=== PATIENT | female | born 1990 | race Caucasian/White ===

== ENCOUNTER → 2020-03-30 13:00 | Outpatient (BNVA) | payer BC, SELFPAY | PROVIDERS: Visit Provider Nurse Practitioner Family | DX: J40 Bronchitis, not specified as acute or chronic (principal); J02.9 Acute pharyngitis, unspecified | CPT/HCPCS: 87071; 87880 ==

== ENCOUNTER → 2020-06-22 11:28 | Outpatient (BNVA) | payer BC, SELFPAY | PROVIDERS: Visit Provider Emergency Medicine | DX: Z11.59 Encounter for screening for other viral diseases (principal) | CPT/HCPCS: 87635 ==

== ENCOUNTER 2021-01-15 22:55 | Emergency (ER) | payer SELFPAY ==
[2021-01-15 23:12] VITALS: BP 142/96; PULSE 111; RESP 18; TEMP 36.6; O2SAT 98; BMI 36.6
--- NOTE | 2021-01-15 23:28 | ED_ITS ---
HPI - Wound/Laceration General: Chief Complaint: Wound/Laceration Stated Complaint: thumb injury Time Seen by Provider: 01/15/21 23:22 Source: patient Mode of arrival: ambulatory Limitations: no limitations History of Present Illness: HPI narrative: 30-year-old female states she had a new hatchet and was cutting for candling. She states she had missed and struck her thumb. She had the very lateral portion of her left thumb and avulsed a small piece of skin. No real laceration. No bone involvement or nail involvement. She states she is not up-to-date on tetanus and having some pain treated 6 out of 10. Denies any other injuries. Associated symptoms: Denies chills, fever(s), nausea or vomiting Review of Systems Const: Denies: fever(s), chills, body aches or change in appetite Eyes: Denies: blurry vision or eye discomfort ENMT: Denies: throat pain or dental pain Card: Denies: chest pain Resp: Denies: dyspnea GI: Denies: abdominal pain, nausea, vomiting or diarrhea : Denies: dysuria Musc: Denies: neck pain or back pain Skin/Breast: Denies: rash Neuro: Denies: headache(s) Psych: Denies: depression Toribio/Lymph: Denies: easy bruising All/Imm: Denies: urticaria PFSH ED PFSH: Social History Smoking and tobacco status: current every day smoker Physical Exam Const: COMMON NORMALS: no acute distress, patient oriented x3 and healthy appearing HENMT: COMMON NORMALS: normocephalic and atraumatic HEAD & SCALP: normocephalic and atraumatic Eye: COMMON NORMALS: Equal, round and reactive pupils present and EOMs intact bilaterally PUPIL: Yes Equal, round and reactive pupils present Neck/C-Spine: COMMON NORMALS: full ROM and supple Chest: COMMONS NORMALS: normal inspection of the chest and normal palpation of entire chest wall Resp: COMMON NORMALS: normal respiratory effort, No retractions, No use of accessory muscles and clear to auscultation bilaterally AUSCULTATION: clear to auscultation bilaterally Cardio: COMMON NORMALS: regular rate, regular rhythm and No murmurs present (Cardio) RATE: regular rate RHYTHM: regular rhythm GI: COMMON NORMALS: Normal to inspection, nondistended, normoactive bowel sounds present, Soft to palpation, non-tender and no masses PALPATION: Yes Soft to palpation Extremity: COMMON NORMALS: full ROM NARRATIVE EXTREMITY EXAM: Very small injury to left thumb very distal lateral portion. Is a small avulsion of skin that was chopped completely off. No bony involvement no nail involvement Neuro: COMMON NORMALS: patient oriented x3, moves all extremities and no focal motor deficits Psych: COMMON NORMALS: mental status grossly normal, Normal thought process present and cooperative THOUGHT PROCESS: Normal thought process present Skin: COMMON NORMALS: no rashes or lesions noted and no wounds GENERAL SKIN EXAM: no rashes or lesions noted Course Vital Signs: Vital signs: Vital Signs Temperature 97.9 F 01/15/21 23:12 Pulse Rate 111 H 01/15/21 23:12 Respiratory Rate 18 01/15/21 23:12 Blood Pressure 142/96 01/15/21 23:12 Pulse Oximetry 98 01/15/21 23:12 MDM - Wound/Laceration MDM Narrative: Medical decision making narrative: Patient presents for thumb injury. She has no real laceration that can be repaired. We will treat the wound with Neosporin and a dressing in place her on pain meds. Patient given a tetanus update and is to follow-up with wound care. She return if worsening. Discharge Plan Discharge Patient Disposition: Home Clinical Impression: Laceration Condition: Stable Prescriptions: New hydrocodone-acetaminophen 5-325 mg tablet 1 tab PO Q6H PRN (Reason: pain) Qty: 8 RF: 0 Discharge Orders: Discharge ED (Routine); Ordered 01/15/21 Ordered By: Nata Han Referrals: [facility], [Staff Physician] - Discharge Diet: Advance as tolerated Discharge Activity: Resume usual activity Patient Instructions: Opioid Safety Coding Level of Care Code ED Monitoring Engineer for Tiffanie Roberson
[2021-01-15] MEDS: tetanus-dipt-pertussis 0.5 mL SDV IM (23:40)
[2021-01-15] MEDS: HYDROcodone-acetaminophen 5-325 mg Tablet 1 TAB PO (23:48)
--- NOTE | 2021-01-16 10:46 | DCPLANNER ---
diversity manager had message to schedule a follow up appointment for patient with Wound Care. diversity manager called Wound Care, spoke with Kori, gave clinic patients information. A follow up appointment was scheduled for Wednesday, January 22, 2021 at 1:[address] Burden. diversity manager called patient at [phone], unable to speak with patient at this time, a voicemail was left for patient to return nurse case manager phone call.
--- NOTE | 2021-02-13 16:58 | DCPLANNER ---
Patient had a follow up appointment scheduled for 01.22.21 with Wound Care - appointment was cancelled.
== END 2021-01-15 23:52 | disposition home or self-care (01) ==
PROVIDERS: Emergency Provider Emergency Medicine
DX: S61.012A Laceration without foreign body of left thumb without damage to nail, initial encounter (principal); W27.0XXA Contact with workbench tool, initial encounter; F17.210 Nicotine dependence, cigarettes, uncomplicated; Z23 Encounter for immunization
CPT/HCPCS: 90471; 90715; 99283

== ENCOUNTER 2021-03-08 15:17 | Emergency (ER) | payer MEDICAID, OTHER, SELFPAY ==
[2021-03-08 15:30] VITALS: BP 145/89; PULSE 107; RESP 22; TEMP 36.5; O2SAT 98; BMI 36.6
--- NOTE | 2021-03-08 15:41 | ED_ITS ---
HPI - SOB/Dyspnea General: Chief Complaint: Shortness of Breath/Dyspnea Stated Complaint: CP, PAINFUL INSPIRATION, COUGHING YELLOW SPUTUM Time Seen by Provider: 03/08/21 15:38 PFSH ED PFSH: Social History Smoking and tobacco status: current every day smoker Female Reproductive History: Date of last menstrual period: 02/28/21 Course Vital Signs: Vital signs: Vital Signs Temperature 97.7 F 03/08/21 15:30 Pulse Rate 107 H 03/08/21 15:30 Respiratory Rate 22 H 03/08/21 15:30 Blood Pressure 145/89 03/08/21 15:30 Pulse Oximetry 98 03/08/21 15:30 Discharge Plan Discharge Prescriptions: No Action hydrocodone-acetaminophen 5-325 mg tablet 1 tab PO Q6H PRN (Reason: pain) Qty: 8 RF: 0 Coding Level of Care Code ED 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
--- NOTE | 2021-03-08 15:53 | ECG_ITS ---
[facility] Test Date: 2021-03-08 Pat Name: Dana Tay Department: Room: Gender: Female Resource Management Specialist: : 1990 Requested By: Steph Duffy Order Number: [id number] Juan Jose MD: Daryl Lechuga M.D. Measurements Intervals [place] Rate: 102 P: 34 AL: 198 QRS: 13 QRSD: 77 T: 39 QT: 331 QTc: 432 Interpretive Statements SINUS TACHYCARDIA No previous ECG available for comparison Electronically Signed On 03-09-2021 17:22:52 CDT by Daryl Lechuga M.D. [id number] f
--- NOTE | 2021-03-08 15:53 | XRR_ITS ---
PROCEDURE INFORMATION: Exam: XR Chest Exam date and time: 03/08/2021 3:53 PM Age: 30 years old Clinical indication: Cough and shortness of breath; Additional info: Cough, covid symptoms TECHNIQUE: Imaging protocol: XR of the chest. Views: 1 view. Total images: 1 COMPARISON: No relevant prior studies available. FINDINGS: Lungs: No visible active interstitial or alveolar airspace disease. Pleural spaces: Unremarkable. No pleural effusion. No pneumothorax. Heart/Mediastinum: Unremarkable. No cardiomegaly. Bones/joints: Unremarkable. Soft tissues: Heavy body habitus. XR/XR chest 1V portable [id number] IMPRESSION: Nonacute.
--- NOTE | 2021-03-08 15:54 | W.ED.URI ---
Documented by User: SANDRITA Davis 03/11/21 07:26 HPI - URI/Sore Throat General: Chief Complaint: Shortness of Breath/Dyspnea Stated Complaint: CP, PAINFUL INSPIRATION, COUGHING YELLOW SPUTUM Time Seen by Provider: 03/08/21 15:38 Source: patient Mode of arrival: ambulatory Limitations: no limitations History of Present Illness: HPI Narrative: Patient is a 30-year-old female here for complaints of fever, cough, congestion, and chest pain. Patient is concerned stating that she has a known positive COVID exposure. She states her main concern is pain in the middle of the left side of her chest that is worse with movement, coughing, and inhalation. She has no previous cardiac or pulmonary history. She has not had any abdominal pain, nausea, vomiting. No rash. She has not noticed any significant shortness of breath. MD elicited complaint: fever, cough, nasal congestion and other (chest pain) Pertinent past history: other Onset (ago): day(s) Consistency: constant Description of mucous: clear Able to tolerate fluids by mouth: Yes Associated symptoms: Reports chest pain, fever(s) and nasal congestion; Deny abdominal pain, diarrhea, headache(s), nausea or vomiting Review of Systems Const: Reports: fever(s) and fatigue; Denies: body aches, change in appetite or change in weight Eyes: Denies: change in vision, blurry vision, photophobia, eye discomfort, floaters or seeing flashes ENMT: Reports: nasal discharge and nasal congestion; Denies: throat pain or odynophagia Card: Reports: chest pain; Denies: palpitations, irregular heart rhythm, edema, swelling of feet/ankles, lightheadedness, syncope or pre-syncope Resp: Reports: dyspnea, non-productive cough and pain on inspiration; Denies: wheezing, stridor or hemoptysis GI: Denies: abdominal pain, nausea, vomiting or diarrhea Musc: Denies: neck pain, back pain, extremity pain or joint pain Skin/Breast: Denies: rash Neuro: Denies: headache(s), numbness in extremities, weakness in extremities or sensory changes PFSH ED PFSH: Social History Smoking and tobacco status: current every day smoker Female Reproductive History: Date of last menstrual period: 02/28/21 Physical Exam Const: COMMON NORMALS: no acute distress, patient oriented x3, no limitations and alert GENERAL APPEARANCE: cooperative NUTRITIONAL APPEARANCE: obese ORIENTATION/CONSCIOUSNESS: Yes awake, Yes oriented to person, Yes oriented to place and Yes oriented to time HENMT: COMMON NORMALS: normocephalic and atraumatic HEAD & SCALP: normocephalic and atraumatic Chest: COMMONS NORMALS: normal inspection of the chest OTHER: TTP mid and L anterior chest; pain also reproduced in chest with movement of her L shoulder Resp: COMMON NORMALS: normal respiratory effort and clear to auscultation bilaterally AUSCULTATION: clear to auscultation bilaterally Cardio: COMMON NORMALS: regular rate and regular rhythm RATE: regular rate RHYTHM: regular rhythm Extremity: COMMON NORMALS: normal to inspection, no calf tenderness and no pedal edema Neuro: COMMON NORMALS: patient oriented x3 SENSORIUM/ORIENTATION: Yes alert, Yes oriented to person, Yes oriented to place and Yes oriented to time Skin: COMMON NORMALS: no rashes or lesions noted GENERAL SKIN EXAM: no rashes or lesions noted Course Vital Signs: Vital signs: Vital Signs Temperature 97.7 F 03/08/21 15:30 Pulse Rate 98 03/08/21 20:00 Respiratory Rate 20 H 03/08/21 20:00 Blood Pressure 112/77 03/08/21 20:00 Pulse Oximetry 94 03/08/21 20:00 MDM - URI/Sore Throat MDM Narrative: Medical decision making narrative: Care transferred to VERITO Fernandes. Lab Data: Labs: Lab Results 03/08/21 03/08/21 03/08/21 Range/Units 16:05 16:05 16:41 WBC 12.3 H (4.0-10.0) 10^3/ uL RBC 4.52 (4.1-5.3) 10^6/u L Hgb 11.7 (11.5-15.3) g/dL Hct 37.7 (37.0-47.0) % MCV 83.4 (81-99) fL MCH 25.9 L (28.0-34.0) pg MCHC 31.0 (30.0-36.0) g/dL RDW 13.2 (12.1-15.1) % Plt Count 352 (130-400) 10^3/c mm MPV 9.6 (7.4-10.4) fL Neut % (Auto) 72.0 % Lymph % (Auto) 16.8 % Stafford % (Auto) 8.8 % Eos % (Auto) 1.2 % Baso % (Auto) 0.5 % Neut # (Auto) 8.82 H (1.8-7.7) 10^3/u L Lymph # (Auto) 2.1 (0.8-4.8) 10^3/u L Stafford # (Auto) 1.1 H (0.2-0.9) 10^3/u L Eos # (Auto) 0.2 (0.0-0.8) 10^3/u L Baso # (Auto) 0.1 (0.0-0.1) 10^3/u L Nucleated RBC % (a uto) 0 % Nucleated RBCs # 0.0 /100WBC D-Dimer (0-0.59) ug/mIFE U Sodium 138 (136-145) mmol/L Potassium 3.7 (3.5-5.1) mmol/L Chloride 100 (98-107) mmol/L Carbon Dioxide 24 (22-29) mmol/L Anion Gap 17.7 (5-19) BUN 9 (6-20) mg/dL Creatinine 0.6 (0.5-0.9) mg/dL GFR Calculation 118.2 (90-130) mL/min Glucose 143 H (65-115) mg/dL Calculated Osmolal ity 287 (285-295) mOsm/k g Calcium 7.3 L (8.5-10.5) mg/dL Total Bilirubin 0.2 (0.15-1.2) mg/dL AST 13 (0-32) U/L ALT 19 (0-33) U/L Alkaline Phosphata se 109 H (35-105) IU/L Troponin T Gen 5 n g/L (0-10) ng/L NT-Pro-B Natriuret Pep 201 H (0-125) pg/mL Total Protein 7.3 (6.6-8.7) g/dL Albumin 3.6 (3.5-5.2) g/dL Globulin 3.7 (1.3-4.6) g/dL HCG, Qual (Negative) SARS-CoV-2 RNA (RT -PCR) (NOT DETECTED) SARS-CoV-2 Ag (Rap id) Negative (Negative) 03/08/21 03/08/21 03/08/21 Range/Units 16:41 16:41 16:41 WBC (4.0-10.0) 10^3/ uL RBC (4.1-5.3) 10^6/u L Hgb (11.5-15.3) g/dL Hct (37.0-47.0) % MCV (81-99) fL MCH (28.0-34.0) pg MCHC (30.0-36.0) g/dL RDW (12.1-15.1) % Plt Count (130-400) 10^3/c mm MPV (7.4-10.4) fL Neut % (Auto) % Lymph % (Auto) % Stafford % (Auto) % Eos % (Auto) % Baso % (Auto) % Neut # (Auto) (1.8-7.7) 10^3/u L Lymph # (Auto) (0.8-4.8) 10^3/u L Stafford # (Auto) (0.2-0.9) 10^3/u L Eos # (Auto) (0.0-0.8) 10^3/u L Baso # (Auto) (0.0-0.1) 10^3/u L Nucleated RBC % (a uto) % Nucleated RBCs # /100WBC D-Dimer 1.03 H (0-0.59) ug/mIFE U Sodium (136-145) mmol/L Potassium (3.5-5.1) mmol/L Chloride (98-107) mmol/L Carbon Dioxide (22-29) mmol/L Anion Gap (5-19) BUN (6-20) mg/dL Creatinine (0.5-0.9) mg/dL GFR Calculation (90-130) mL/min Glucose (65-115) mg/dL Calculated Osmolal ity (285-295) mOsm/k g Calcium (8.5-10.5) mg/dL Total Bilirubin (0.15-1.2) mg/dL AST (0-32) U/L ALT (0-33) U/L Alkaline Phosphata se (35-105) IU/L Troponin T Gen 5 n g/L 6 (0-10) ng/L NT-Pro-B Natriuret Pep (0-125) pg/mL Total Protein (6.6-8.7) g/dL Albumin (3.5-5.2) g/dL Globulin (1.3-4.6) g/dL HCG, Qual Negative (Negative) SARS-CoV-2 RNA (RT -PCR) (NOT DETECTED) SARS-CoV-2 Ag (Rap id) (Negative) 03/08/21 Range/Units 18:21 WBC (4.0-10.0) 10^3/ uL RBC (4.1-5.3) 10^6/u L Hgb (11.5-15.3) g/dL Hct (37.0-47.0) % MCV (81-99) fL MCH (28.0-34.0) pg MCHC (30.0-36.0) g/dL RDW (12.1-15.1) % Plt Count (130-400) 10^3/c mm MPV (7.4-10.4) fL Neut % (Auto) % Lymph % (Auto) % Stafford % (Auto) % Eos % (Auto) % Baso % (Auto) % Neut # (Auto) (1.8-7.7) 10^3/u L Lymph # (Auto) (0.8-4.8) 10^3/u L Stafford # (Auto) (0.2-0.9) 10^3/u L Eos # (Auto) (0.0-0.8) 10^3/u L Baso # (Auto) (0.0-0.1) 10^3/u L Nucleated RBC % (a uto) % Nucleated RBCs # /100WBC D-Dimer (0-0.59) ug/mIFE U Sodium (136-145) mmol/L Potassium (3.5-5.1) mmol/L Chloride (98-107) mmol/L Carbon Dioxide (22-29) mmol/L Anion Gap (5-19) BUN (6-20) mg/dL Creatinine (0.5-0.9) mg/dL GFR Calculation (90-130) mL/min Glucose (65-115) mg/dL Calculated Osmolal ity (285-295) mOsm/k g Calcium (8.5-10.5) mg/dL Total Bilirubin (0.15-1.2) mg/dL AST (0-32) U/L ALT (0-33) U/L Alkaline Phosphata se (35-105) IU/L Troponin T Gen 5 n g/L (0-10) ng/L NT-Pro-B Natriuret Pep (0-125) pg/mL Total Protein (6.6-8.7) g/dL Albumin (3.5-5.2) g/dL Globulin (1.3-4.6) g/dL HCG, Qual (Negative) SARS-CoV-2 RNA (RT -PCR) Detected A (NOT DETECTED) SARS-CoV-2 Ag (Rap id) (Negative) Discharge Plan Discharge Patient Disposition: Home Clinical Impression: Pneumonia Qualifiers: Pneumonia type: due to unspecified organism Laterality: left Lung location: unspecified part of lung Qualified Code(s): J18.9 - Pneumonia, unspecified organism Condition: Stable Prescriptions: New doxycycline monohydrate 100 mg capsule 100 mg PO BID 7 Days Qty: 14 RF: 0 albuterol sulfate 90 mcg/actuation HFA aerosol inhaler 2 inh inhalation Q4H PRN (Reason: shortness of breath or wheezing) Qty: 8.5 RF: 0 hydrocodone-acetaminophen 5-325 mg tablet 1 tab PO Q6H PRN (Reason: pain (scale score 7-10)) Qty: 7 RF: 0 No Action Tylenol Extra Strength 500 mg Tablet 1,000 mg PO PRN RF: 0 Discharge Orders: Discharge ED (Routine); Ordered 03/08/21 Ordered By: Shawn Caballero Discharge Diet: Usual diet Patient Instructions: Pneumonia (ED), Opioid Safety Activity Restrictions/Additional Instructions: Take medication as directed. Drink plenty of fluids. Use acetaminophen and ibuprofen to help control pain. Use hydrocodone for breakthrough pain. Activity as tolerated. Avoid contact with other individuals. Wear a mask around other individuals to prevent the spread of infection. Follow-up with primary care as needed. Return to the emergency department for worsening symptoms or new concerns. Stand Alone Forms: Work/School Release Sign Out Sign Out Data: Patient Sign Out occurred on 03/08/21 at 17:10. Patient's care was discussed, and care was transferred from to Shawn Caballero. Coding Level of Care Code ED Machine Lead Burner for Chg Fwd Exam Comprehensive Documented by User: VERITO Herrera 03/08/21 19:20 HPI - URI/Sore Throat General: Chief Complaint: Shortness of Breath/Dyspnea Stated Complaint: CP, PAINFUL INSPIRATION, COUGHING YELLOW SPUTUM Time Seen by Provider: 03/08/21 15:38 History of Present Illness: HPI Narrative: Patient comes in today for complaints of cough and congestion for about 2 days. Patient reports worsening chest discomfort and pain. Patient does have a history of pleurisy. Patient has no has a history of positive Covid 19 exposure. Patient reports that her mother tested positive and she was placed on Covid quarantine until the . Patient started becoming ill 2 to 3 days ago. Patient appears unwell but not toxic. Patient reports left-sided chest discomfort with cough and congestion. MD elicited complaint: fever and cough Onset (ago): day(s) Consistency: intermittent Severity: moderate Description of mucous: clear and watery Exacerbating factors: nothing Relieving factors: nothing Associated symptoms: Reports no associated symptoms and fever(s) Review of Systems General: Reports: 10 or more systems reviewed and unremarkable except in HPI and below Const: Reports: fever(s) and body aches PFSH ED PFSH: Social History Smoking and tobacco status: current every day smoker Physical Exam Const: COMMON NORMALS: no acute distress and patient oriented x3 GENERAL APPEARANCE: cooperative HENMT: COMMON NORMALS: normocephalic, TM's normal bilaterally and Normal external nose present HEAD & SCALP: normal to inspection and normocephalic NOSE: Normal external nose present TYMPANIC MEMBRANE: TM's normal bilaterally MOUTH: Normal oral and palatal mucosa present THROAT: posterior oropharynx normal Eye: GENERAL EYE: appearance normal, both eyes and all related structures Neck/C-Spine: COMMON NORMALS: full ROM Lymph: LYMPHATIC: no lymphadenopathy noted Chest: COMMONS NORMALS: normal inspection of the chest Resp: COMMON NORMALS: normal respiratory effort EFFORT & INSPECTION: Yes able to speak in complete sentences AUSCULTATION: rhonchi Cardio: COMMON NORMALS: regular rate and regular rhythm RATE: regular rate RHYTHM: regular rhythm GI: COMMON NORMALS: non-tender : COMMON NORMALS: Yes no CVA tenderness BLADDER/KIDNEY EXAM: Yes no CVA tenderness Back/Pelvis: COMMON NORMALS: no CVA tenderness and thoracic and lumbar spine normal to inspection Extremity: COMMON NORMALS: normal to inspection Neuro: COMMON NORMALS: patient oriented x3 and moves all extremities Psych: COMMON NORMALS: mental status grossly normal and cooperative Skin: COMMON NORMALS: no rashes or lesions noted GENERAL SKIN EXAM: no rashes or lesions noted Course Vital Signs: Vital signs: Vital Signs Temperature 97.7 F 03/08/21 15:30 Pulse Rate 98 03/08/21 20:00 Respiratory Rate 20 H 03/08/21 20:00 Blood Pressure 112/77 03/08/21 20:00 Pulse Oximetry 94 03/08/21 20:00 MDM - URI/Sore Throat MDM Narrative: Medical decision making narrative: Patient came in today for complaints of some left upper chest wall pain. Patient reports illness for last 2 to 3 days. Patient does report positive exposure to COVID-19. On exam patient has rhonchi in lung perez. Patient's O2 sats was 98%. Patient was slightly tachycardic in the 120s. Blood pressure was normal. Differential diagnosis includes not limited to COVID-19, pneumonia, bronchitis. COVID-19 test was negative. Chest x-ray was unremarkable. Patient did have a positive D-dimer of 1+. Remainder of labs were unremarkable except for some slight elevation in the BNP at 200. Troponin was negative and EKG was unremarkable. CT for PE was performed and was negative for PE but did note some left upper lung pneumonia. Patient was treated for pain with hydrocodone, given a dose of ceftriaxone and dexamethasone IV and will be continue with doxycycline 100 mg twice a day. Still have a strong suspicion for COVID-19 I went ahead and sent out a PCR test. Patient reported understanding of care plan and need for follow-up or return to the ER. Lab Data: Labs: Lab Results 03/08/21 03/08/21 03/08/21 Range/Units 16:05 16:05 16:41 WBC 12.3 H (4.0-10.0) 10^3/ uL RBC 4.52 (4.1-5.3) 10^6/u L Hgb 11.7 (11.5-15.3) g/dL Hct 37.7 (37.0-47.0) % MCV 83.4 (81-99) fL MCH 25.9 L (28.0-34.0) pg MCHC 31.0 (30.0-36.0) g/dL RDW 13.2 (12.1-15.1) % Plt Count 352 (130-400) 10^3/c mm MPV 9.6 (7.4-10.4) fL Neut % (Auto) 72.0 % Lymph % (Auto) 16.8 % Stafford % (Auto) 8.8 % Eos % (Auto) 1.2 % Baso % (Auto) 0.5 % Neut # (Auto) 8.82 H (1.8-7.7) 10^3/u L Lymph # (Auto) 2.1 (0.8-4.8) 10^3/u L Stafford # (Auto) 1.1 H (0.2-0.9) 10^3/u L Eos # (Auto) 0.2 (0.0-0.8) 10^3/u L Baso # (Auto) 0.1 (0.0-0.1) 10^3/u L Nucleated RBC % (a uto) 0 % Nucleated RBCs # 0.0 /100WBC D-Dimer (0-0.59) ug/mIFE U Sodium 138 (136-145) mmol/L Potassium 3.7 (3.5-5.1) mmol/L Chloride 100 (98-107) mmol/L Carbon Dioxide 24 (22-29) mmol/L Anion Gap 17.7 (5-19) BUN 9 (6-20) mg/dL Creatinine 0.6 (0.5-0.9) mg/dL GFR Calculation 118.2 (90-130) mL/min Glucose 143 H (65-115) mg/dL Calculated Osmolal ity 287 (285-295) mOsm/k g Calcium 7.3 L (8.5-10.5) mg/dL Total Bilirubin 0.2 (0.15-1.2) mg/dL AST 13 (0-32) U/L ALT 19 (0-33) U/L Alkaline Phosphata se 109 H (35-105) IU/L Troponin T Gen 5 n g/L (0-10) ng/L NT-Pro-B Natriuret Pep 201 H (0-125) pg/mL Total Protein 7.3 (6.6-8.7) g/dL Albumin 3.6 (3.5-5.2) g/dL Globulin 3.7 (1.3-4.6) g/dL HCG, Qual (Negative) SARS-CoV-2 RNA (RT -PCR) (NOT DETECTED) SARS-CoV-2 Ag (Rap id) Negative (Negative) 03/08/21 03/08/21 03/08/21 Range/Units 16:41 16:41 16:41 WBC (4.0-10.0) 10^3/ uL RBC (4.1-5.3) 10^6/u L Hgb (11.5-15.3) g/dL Hct (37.0-47.0) % MCV (81-99) fL MCH (28.0-34.0) pg MCHC (30.0-36.0) g/dL RDW (12.1-15.1) % Plt Count (130-400) 10^3/c mm MPV (7.4-10.4) fL Neut % (Auto) % Lymph % (Auto) % Stafford % (Auto) % Eos % (Auto) % Baso % (Auto) % Neut # (Auto) (1.8-7.7) 10^3/u L Lymph # (Auto) (0.8-4.8) 10^3/u L Stafford # (Auto) (0.2-0.9) 10^3/u L Eos # (Auto) (0.0-0.8) 10^3/u L Baso # (Auto) (0.0-0.1) 10^3/u L Nucleated RBC % (a uto) % Nucleated RBCs # /100WBC D-Dimer 1.03 H (0-0.59) ug/mIFE U Sodium (136-145) mmol/L Potassium (3.5-5.1) mmol/L Chloride (98-107) mmol/L Carbon Dioxide (22-29) mmol/L Anion Gap (5-19) BUN (6-20) mg/dL Creatinine (0.5-0.9) mg/dL GFR Calculation (90-130) mL/min Glucose (65-115) mg/dL Calculated Osmolal ity (285-295) mOsm/k g Calcium (8.5-10.5) mg/dL Total Bilirubin (0.15-1.2) mg/dL AST (0-32) U/L ALT (0-33) U/L Alkaline Phosphata se (35-105) IU/L Troponin T Gen 5 n g/L 6 (0-10) ng/L NT-Pro-B Natriuret Pep (0-125) pg/mL Total Protein (6.6-8.7) g/dL Albumin (3.5-5.2) g/dL Globulin (1.3-4.6) g/dL HCG, Qual Negative (Negative) SARS-CoV-2 RNA (RT -PCR) (NOT DETECTED) SARS-CoV-2 Ag (Rap id) (Negative) 03/08/21 Range/Units 18:21 WBC (4.0-10.0) 10^3/ uL RBC (4.1-5.3) 10^6/u L Hgb (11.5-15.3) g/dL Hct (37.0-47.0) % MCV (81-99) fL MCH (28.0-34.0) pg MCHC (30.0-36.0) g/dL RDW (12.1-15.1) % Plt Count (130-400) 10^3/c mm MPV (7.4-10.4) fL Neut % (Auto) % Lymph % (Auto) % Stafford % (Auto) % Eos % (Auto) % Baso % (Auto) % Neut # (Auto) (1.8-7.7) 10^3/u L Lymph # (Auto) (0.8-4.8) 10^3/u L Stafford # (Auto) (0.2-0.9) 10^3/u L Eos # (Auto) (0.0-0.8) 10^3/u L Baso # (Auto) (0.0-0.1) 10^3/u L Nucleated RBC % (a uto) % Nucleated RBCs # /100WBC D-Dimer (0-0.59) ug/mIFE U Sodium (136-145) mmol/L Potassium (3.5-5.1) mmol/L Chloride (98-107) mmol/L Carbon Dioxide (22-29) mmol/L Anion Gap (5-19) BUN (6-20) mg/dL Creatinine (0.5-0.9) mg/dL GFR Calculation (90-130) mL/min Glucose (65-115) mg/dL Calculated Osmolal ity (285-295) mOsm/k g Calcium (8.5-10.5) mg/dL Total Bilirubin (0.15-1.2) mg/dL AST (0-32) U/L ALT (0-33) U/L Alkaline Phosphata se (35-105) IU/L Troponin T Gen 5 n g/L (0-10) ng/L NT-Pro-B Natriuret Pep (0-125) pg/mL Total Protein (6.6-8.7) g/dL Albumin (3.5-5.2) g/dL Globulin (1.3-4.6) g/dL HCG, Qual (Negative) SARS-CoV-2 RNA (RT -PCR) Detected A (NOT DETECTED) SARS-CoV-2 Ag (Rap id) (Negative) Discharge Plan Discharge Patient Disposition: Home Clinical Impression: Pneumonia Qualifiers: Pneumonia type: due to unspecified organism Laterality: left Lung location: unspecified part of lung Qualified Code(s): J18.9 - Pneumonia, unspecified organism Condition: Stable Prescriptions: New doxycycline monohydrate 100 mg capsule 100 mg PO BID 7 Days Qty: 14 RF: 0 albuterol sulfate 90 mcg/actuation HFA aerosol inhaler 2 inh inhalation Q4H PRN (Reason: shortness of breath or wheezing) Qty: 8.5 RF: 0 hydrocodone-acetaminophen 5-325 mg tablet 1 tab PO Q6H PRN (Reason: pain (scale score 7-10)) Qty: 7 RF: 0 No Action Tylenol Extra Strength 500 mg Tablet 1,000 mg PO PRN RF: 0 Discharge Orders: Discharge ED (Routine); Ordered 03/08/21 Ordered By: Shawn Caballero Discharge Diet: Usual diet Patient Instructions: Pneumonia (ED), Opioid Safety Activity Restrictions/Additional Instructions: Take medication as directed. Drink plenty of fluids. Use acetaminophen and ibuprofen to help control pain. Use hydrocodone for breakthrough pain. Activity as tolerated. Avoid contact with other individuals. Wear a mask around other individuals to prevent the spread of infection. Follow-up with primary care as needed. Return to the emergency department for worsening symptoms or new concerns. Stand Alone Forms: Work/School Release Sign Out Sign Out Data: Patient Sign Out occurred on 03/08/21 at 17:10. Patient's care was discussed, and care was transferred from to Shawn Caballero. Coding Level of Care Code ED Machine Lead Burner for Tiffanie Roberson Exam Comprehensive
[2021-03-08 16:06] VITALS: BP 100/72; PULSE 108; RESP 18; O2SAT 93
[2021-03-08 16:10] LABS: Basophils # 0.1 10^3/uL (0.0-0.1); Basophils % 0.5 %; Eosinophils # 0.2 10^3/uL (0.0-0.8); Eosinophils % 1.2 %; Hematocrit 37.7 % (37.0-47.0); Hemoglobin 11.7 g/dL (11.5-15.3); Lymphocytes # 2.1 10^3/uL (0.8-4.8); Lymphocytes % 16.8 %; Mean Corpuscular Hemoglobin 25.9 pg (28.0-34.0); Mean Corpuscular Volume 83.4 fL (81-99); Mean Platelet Volume 9.6 fL (7.4-10.4); Monocytes # 1.1 10^3/uL (0.2-0.9); Monocytes % 8.8 %; Neutrophils # 8.82 10^3/uL (1.8-7.7); Nucleated Red Blood Cells % 0 %; Platelet Count 352 10^3/cmm (130-400); Red Blood Count 4.52 10^6/uL (4.1-5.3); Red Cell Distribution Width 13.2 % (12.1-15.1); White Blood Count 12.3 10^3/uL (4.0-10.0)
[2021-03-08 16:50] LABS: SARS Covid-2 Antigen Negative (Negative)
[2021-03-08 16:58] LABS: HCG, Serum Qual Negative (Negative)
[2021-03-08 17:00] LABS: D Dimer 1.03 ug/mIFEU (0-0.59)
--- NOTE | 2021-03-08 17:03 | CTR_ITS ---
PROCEDURE INFORMATION: Exam: CTA Chest With Contrast Exam date and time: 03/08/2021 5:03 PM Age: 30 years old Clinical indication: Cough and shortness of breath; Patient HX: Cough, congestion, SOB, L sided cp, elev d-dimer; Additional info: L chest pain, SOB, elevated d dimer TECHNIQUE: Imaging protocol: Computed tomographic angiography of the chest with contrast. 3D rendering (Not supervised by radiologist): MIP and/or 3D reconstructed images were created by the technologist. Total images: 843 Radiation optimization: All CT scans at this facility use at least one of these dose optimization techniques: automated exposure control; mA and/or kV adjustment per patient size (includes targeted exams where dose is matched to clinical indication); or iterative reconstruction. Contrast material: OMNI 350; Contrast volume: 74 ml; Contrast route: INTRAVENOUS (IV); COMPARISON: CR (CHEST, ) 03/08/2021 4:35 PM RADIATION DOSE METRICS: Total DLP (mGy-cm): 552.93 FINDINGS: Pulmonary arteries: No visible evidence of pulmonary embolism/pulmonary arterial thrombus. Aorta: The thoracic aorta is nonaneurysmal. No visible intimal flap or dissection. Lungs: Subsegmental consolidated alveolar airspace disease anterior segment left upper lobe consistent with left upper lobe pneumonia. Mild discoid atelectasis right lower lobe and lingula. Two smooth walled pulmonary nodules posterior basal segment right lower lobe the largest measuring 11 mm x 8 mm and the 2nd 9 mm in diameter. Pleural spaces: Unremarkable. No pneumothorax. No pleural effusion. Heart: No cardiomegaly. No visible pericardial effusion. No visible coronary artery disease. Lymph nodes: Moderately prominent mediastinal and hilar lymph nodes most likely reactive. Prominent aortopulmonic lymph node measures 14 mm in the short axis. Liver: Hepatomegaly. Spleen: Splenomegaly. Bones/joints: No visible active or acute osseous pathology. Soft tissues: Unremarkable. Other findings: Obesity. CT/CT angio chest PE protcl [id number] IMPRESSION: 1. No visible evidence of pulmonary embolism/pulmonary arterial thrombus. 2. Subsegmental consolidated alveolar airspace disease anterior segment left upper lobe consistent with pneumonia. 3. Mild discoid atelectasis right lower lobe and lingula. 4. Two benign-appearing pulmonary nodules right lower lobe. If the patient does not have known cancer, follow up should be based on clinical information because of the low risk of cancer in this age group. (Reference: Leilani). 5. Moderately prominent mediastinal and hilar lymph nodes most likely reactive. 6. Hepatosplenomegaly. REFERENCES: Leilani Han, et al. Guidelines for Management of Incidental Pulmonary Nodules Detected on CT Images: From the Fleischner Society 2017. Radiology. 2017;284(1):228-243. Radiation Dose CTDIVOL = (mGy): DLP = 552.93 (mGy-cm)
[2021-03-08 17:06] VITALS: BP 110/76; PULSE 110; RESP 20; O2SAT 95
[2021-03-08 17:08] LABS: Troponin T (5th) Once 6 ng/L (0-10)
[2021-03-08 17:15] LABS: Alanine Aminotransferase 19 U/L (0-33); Albumin Level 3.6 g/dL (3.5-5.2); Alkaline Phosphatase 109 IU/L (35-105); Anion Gap 17.7 (5-19); Aspartate Amino Transferase 13 U/L (0-32); Blood Urea Nitrogen 9 mg/dL (6-20); Calcium 7.3 mg/dL (8.5-10.5); Carbon Dioxide 24 mmol/L (22-29); Chloride 100 mmol/L (98-107); Globulin 3.7 g/dL (1.3-4.6); Glomerular Filtration Rate 118.2 mL/min (90-130); Glucose 143 mg/dL (65-115); NT Pro B Type Natriuretic Pept 201 pg/mL (0-125); Osmolality Calculated 287 mOsm/kg (285-295); Potassium 3.7 mmol/L (3.5-5.1); Sodium 138 mmol/L (136-145); Total Bilirubin 0.2 mg/dL (0.15-1.2); Total Protein 7.3 g/dL (6.6-8.7)
[2021-03-08] MEDS: ketorolac 30 mg/mL INJ 15 MG IVP (18:05)
[2021-03-08 18:06] VITALS: BP 98/76; PULSE 110; RESP 18; O2SAT 95
[2021-03-08] MEDS: sodium chloride 0.9% 500 ML 999 ML IV (18:06)
[2021-03-08] MEDS: HYDROcodone-acetaminophen 7.5-325 mg Tablet 1 TAB PO (18:06)
[2021-03-08] MEDS: iohexol 350 mg/mL 100 mL Btl IV (18:37)
[2021-03-08 19:00] VITALS: BP 105/75; PULSE 105; RESP 20; O2SAT 96
[2021-03-08] MEDS: doxycycline 100 mg Tablet PO (19:34)
[2021-03-08] MEDS: cefTRIAXone 1,000 MG in sodium chloride 0.9% (plus) 50 ML 100 MG IV (19:34)
[2021-03-08] MEDS: dexamethasone 4 mg/mL INJ 10 MG IVP (19:34)
[2021-03-08 20:00] VITALS: BP 112/77; PULSE 98; RESP 20; O2SAT 94
[2021-03-11 03:57] LABS: Quest SARS-CoV-2 RNA DETECTED (NOT DETECTED)
== END 2021-03-08 20:32 | disposition home or self-care (01) ==
PROVIDERS: Physician Assistant; Emergency Provider Nurse Practitioner Family
DX: U07.1 COVID-19 (principal); J18.9 Pneumonia, unspecified organism; F17.210 Nicotine dependence, cigarettes, uncomplicated; J12.82 Pneumonia due to coronavirus disease 2019
CPT/HCPCS: 36415; 71045; 71275; 80053; 83880; 84484; 84703; 85025; 85378; 87426; 87635; 93005; 96365; 96375; 99284; J0696; J1100; J1885; J3535; J7040; Q9967

== ENCOUNTER 2021-12-23 09:52 | Inpatient (IN) | payer BC, SELFPAY ==
[2021-12-23 09:59] VITALS: BP 131/98; PULSE 85; RESP 18; TEMP 36.4; O2SAT 100; BMI 38.4
--- NOTE | 2021-12-23 10:23 | ED.C_ITS ---
Documented by User: SANDRITA Hendricks 12/23/21 16:10 HPI - Psych General: Chief Complaint: Psychiatric Symptoms Stated Complaint: SI Time Seen by Provider: 12/23/21 09:53 History of Present Illness: Patient is a 31-year-old female comes to the ED with SI. She has a history of methamphetamine abuse, ADHD, depression and anxiety. She is currently not on any medications and does not see any behavioral health specialist. Today she was having a rough day with her and they were fighting. They live out of their car and or finding a parking lot. A person who witnessed them find a bergamot called the ambulance and they went to see her and she told them she was coming to the stress unit. Patient admits to that she has been having some suicidal thoughts. She has been thinking about cutting her wrist. Patient says that her does not want to be with her anymore and she feels like she cannot do anything right. Patient did tell me that she would like to just go to sleep. Associated symptoms: Reports depression and suicidal ideation Review of Systems Const: Denies: fever(s), chills or fatigue Eyes: Denies: change in vision or eye discomfort ENMT: Denies: throat pain, odynophagia, nasal discharge or nasal congestion Card: Denies: chest pain, palpitations, edema, swelling of feet/ankles, dyspnea on exertion or orthopnea Resp: Denies: dyspnea, productive cough or non-productive cough GI: Denies: abdominal pain, nausea, vomiting, diarrhea, constipation or hematochezia : Denies: flank pain, dysuria or hematuria Musc: Denies: neck pain, back pain or extremity swelling Skin/Breast: Denies: rash or new lesions Neuro: Denies: headache(s), numbness in extremities or weakness in extremities Psych: Reports: anxiety, depression, hopelessness and suicidal ideation [facility] ED PFSH: Medical History Methamphetamine abuse No pertinent family history Social History Smoking and tobacco status: current every day smoker Female Reproductive History: Date of last menstrual period: 02/28/21 Physical Exam Const: COMMON NORMALS: patient oriented x3 and alert GENERAL APPEARANCE: cooperative HENMT: COMMON NORMALS: normocephalic HEAD & SCALP: normocephalic MOUTH: Normal oral and palatal mucosa present THROAT: posterior oropharynx normal a nd uvula midline Neck/C-Spine: COMMON NORMALS: supple GENERAL: Yes normal visual inspection Resp: COMMON NORMALS: normal respiratory effort, No retractions, No use of accessory muscles and clear to auscultation bilaterally AUSCULTATION: clear to auscultation bilaterally Cardio: COMMON NORMALS: regular rate, regular rhythm, S1 normal heart sound present, S2 normal heart sound present, No gallops present (Cardio), No clicks present (Cardio), No murmurs present (Cardio) and Peripheral pulses 2+ throughout RATE: regular rate RHYTHM: regular rhythm HEART SOUNDS: S1 normal heart sound present and S2 normal heart sound present PERIPHERAL PULSES: Peripheral pulses 2+ throughout GI: COMMON NORMALS: Normal to inspection, nondistended, normoactive bowel sounds present, Soft to palpation, non-tender and no masses PALPATION: Yes Soft to palpation : COMMON NORMALS: Yes no CVA tenderness BLADDER/KIDNEY EXAM: Yes no CVA tenderness Back/Pelvis: COMMON NORMALS: no CVA tenderness Extremity: COMMON NORMALS: normal to inspection Neuro: COMMON NORMALS: patient oriented x3 and moves all extremities SENSORIUM/ORIENTATION: Yes alert Psych: COMMON NORMALS: Normal thought process present, cooperative and speech normal APPEARANCE: Yes grossly normal ATTITUDE: Yes calm ACTIVITY/MOTOR BEHAVIOR: Yes appropriate eye contact SPEECH: Yes normal speech MOOD & AFFECT: Yes sad and Yes tearful THOUGHT PROCESS: Normal thought process present THOUGHT CONTENT: Yes Suicidality present ATTENTION/CONCENTRATION: Yes attention grossly intact and Yes concentration grossly intact JUDGEMENT: Fair judgement present (Psych) Skin: GENERAL SKIN EXAM: dry skin Course Consultations: Consultation #1: I contacted Dr. Brito and told about patient case and he agreed to have patient admitted into the NPU for reevaluation. Vital Signs: Vital signs: Vital Signs Temperature 97.5 F L 12/23/21 20:25 Pulse Rate 90 12/23/21 20:25 Respiratory Rate 16 12/23/21 20:25 Blood Pressure 127/84 12/23/21 20:25 Pulse Oximetry 100 12/23/21 20:25 MDM - Psych Medical Decision Making Patient is a 31-year-old female comes to the ED with SI. Patient is medically cleared and I contacted Dr. Brito and told him about patient case. He agreed to have patient admitted into the NPU for further evaluation. Dr. Treviño placed the admitting orders. Lab Data I reviewed the patient's lab results. : 12/23/21 11:13 12/23/21 11:13 Laboratory Results WBC 11.2 10^3/uL (4.0-10.0) H 12/23/21 11:13 RBC 4.55 10^6/uL (4.1-5.3) 12/23/21 11:13 Hgb 11.4 g/dL (11.5-15.3) L 12/23/21 11:13 Hct 37.2 % (37.0-47.0) 12/23/21 11:13 MCV 81.8 fl (81-99) 12/23/21 11:13 MCH 25.1 pg (28.0-34.0) L 12/23/21 11:13 MCHC 30.6 g/dL (30.0-36.0) 12/23/21 11:13 RDW 14.4 % (12.1-15.1) 12/23/21 11:13 Plt Count 473 10^3/cmm (130-400) H 12/23/21 11:13 MPV 9.2 fL (7.4-10.4) 12/23/21 11:13 Neut % (Auto) 63.9 % 12/23/21 11:13 Lymph % (Auto) 28.8 % 12/23/21 11:13 [place] % (Auto) 4.9 % 12/23/21 11:13 Eos % (Auto) 1.6 % 12/23/21 11:13 Baso % (Auto) 0.4 % 12/23/21 11:13 Neut # (Auto) 7.13 10^3/uL (1.8-7.7) 12/23/21 11:13 Lymph # (Auto) 3.2 10^3/uL (0.8-4.8) 12/23/21 11:13 [place] # (Auto) 0.6 10^3/uL (0.2-0.9) 12/23/21 11:13 Eos # (Auto) 0.2 10^3/uL (0.0-0.8) 12/23/21 11:13 Baso # (Auto) 0.0 10^3/uL (0.0-0.1) 12/23/21 11:13 Nucleated RBC % (auto) 0 % 12/23/21 11:13 Nucleated RBCs # 0.0 /100WBC 12/23/21 11:13 Sodium 137 mmol/L (136-145) 12/23/21 11:13 Potassium 3.9 mmol/L (3.5-5.1) 12/23/21 11:13 Chloride 100 mmol/L (98-107) 12/23/21 11:13 Carbon Dioxide 24 mmol/L (22-29) 12/23/21 11:13 Anion Gap 16.9 (5-19) 12/23/21 11:13 BUN 15 mg/dL (6-20) 12/23/21 11:13 Creatinine 0.7 mg/dL (0.5-0.9) 12/23/21 11:13 GFR Calculation 98.3 mL/min (90-130) 12/23/21 11:13 Glucose 83 mg/dL (65-115) 12/23/21 11:13 Calculated Osmolality 284 mOsm/kg (285-295) L 12/23/21 11:13 Calcium 7.3 mg/dL (8.5-10.5) L 12/23/21 11:13 Total Bilirubin 0.4 mg/dL (0.15-1.2) 12/23/21 11:13 AST 16 U/L (0-32) 12/23/21 11:13 ALT 16 U/L (0-33) 12/23/21 11:13 Alkaline Phosphatase 127 IU/L (35-105) H 12/23/21 11:13 Total Protein 7.8 g/dL (6.6-8.7) 12/23/21 11:13 Albumin 4.2 g/dL (3.5-5.2) 12/23/21 11:13 Globulin 3.6 g/dL (1.3-4.6) 12/23/21 11:13 HCG, Qual Negative (Negative) 12/23/21 11:13 Urine Color Dark yellow (Yellow) 12/23/21 10:30 Urine Appearance Clear (CLEAR) 12/23/21 10:30 Urine pH 5 (5-7) 12/23/21 10:30 Ur Specific [place] 1.025 (1.005-1.030) 12/23/21 10:30 Urine Protein 1+ (Negative) H 12/23/21 10:30 Urine Glucose (UA) Norm (Normal) 12/23/21 10:30 Urine Ketones Negative (Negative) 12/23/21 10:30 Urine Blood Neg (Negative) 12/23/21 10:30 Urine Nitrate Negative (Negative) 12/23/21 10:30 Urine Bilirubin 1+ (Negative) H 12/23/21 10:30 Urine Urobilinogen 1 mg/dL (Negative) H 12/23/21 10:30 Ur Leukocyte Esterase Negative (Negative) 12/23/21 10:30 Urine RBC 0-4 /hpf (0-2) H 12/23/21 10:30 Urine WBC 0-4 /hpf (0-5) H 12/23/21 10:30 Ur Squamous Epith Cells 0-4 /hpf (0-5) H 12/23/21 10:30 Ur Transition Epith Cell None /hpf 12/23/21 10:30 Ur Renal Epithelial Cell N /hpf 12/23/21 10:30 Calcium Oxalate Crystal None /hpf 12/23/21 10:30 Uric Acid Crystals N /hpf 12/23/21 10:30 Triple Phos Crystals None /hpf 12/23/21 10:30 Other Crystals N /hpf 12/23/21 10:30 Amorphous Sediment Trace /hpf 12/23/21 10:30 Urine Bacteria None /hpf (NONE) 12/23/21 10:30 Hyaline Casts None /lpf 12/23/21 10:30 Fine Granular Casts 0-4 /lpf H 12/23/21 10:30 Coarse Granular Casts None /lpf 12/23/21 10:30 RBC Casts None /lpf 12/23/21 10:30 Other Casts N /lpf 12/23/21 10:30 Urine Mucus 1+ /hpf 12/23/21 10:30 Urine Trichomonas None /hpf 12/23/21 10:30 Urine Yeast None /hpf 12/23/21 10:30 Urine Sperm None /hpf 12/23/21 10:30 Ur Oval Fat Bodies None /hpf 12/23/21 10:30 Salicylates < 0.3 mg/dL (3-10) L 12/23/21 11:13 Urine Opiates Screen Negative ng/mL (Negative) 12/23/21 10:30 Acetaminophen < 5.0 ug/mL (10-30) L 12/23/21 11:13 Ur Barbiturates Screen Negative ng/mL (Negative) 12/23/21 10:30 Ur Phencyclidine Scrn Negative ng/mL (Negative) 12/23/21 10:30 Ur Amphetamines Screen Positive ng/mL (Negative) H 12/23/21 10:30 U Benzodiazepines Scrn Negative ng/mL (Negative) 12/23/21 10:30 Urine Cocaine Screen Negative ng/mL (Negative) 12/23/21 10:30 U Marijuana (THC) Screen Negative ng/mL (Negative) 12/23/21 10:30 Ethyl Alcohol < 10 mg/dL (0-10) 12/23/21 11:13 Discharge Plan Discharge Admit Provider: Shawn Brito Clinical Impression: Suicidal ideation Condition: Stable Coding Level of Care Code ED [employer] for [employer]g Fwd Exam Comprehensive Documented by User: Jan Treviño DO 12/24/21 06:04 HPI - Psych General: Chief Complaint: Psychiatric Symptoms Stated Complaint: SI Time Seen by Provider: 12/23/21 09:53 [facility] ED PFSH: Medical History Methamphetamine abuse No pertinent family history Social History Smoking and tobacco status: current every day smoker Course Vital Signs: Vital signs: Vital Signs Temperature 97.5 F L 12/23/21 20:25 Pulse Rate 90 12/23/21 20:25 Respiratory Rate 16 12/23/21 20:25 Blood Pressure 127/84 12/23/21 20:25 Pulse Oximetry 100 12/23/21 20:25 MDM - Psych Medical Decision Making Patient is a 31-year-old female comes to the ED with SI. Patient is medically cleared and I contacted Dr. Brito and told him about patient case. He agreed to have patient admitted into the NPU for further evaluation. Dr. Treviño placed the admitting orders. Chart reviewed and patient discussed with midlevel. Agree with assessment and plan. Patient expressed suicidality to her nurse. Nurse filled out a affidavit which Dr. Brito will use to complete the 96 initially when she was here she was agreeable to admission but then changed her mind after she arrived in MPU. Medical Records I reviewed the patient's medical records. Lab Data I reviewed the patient's lab results. : 12/23/21 11:13 12/23/21 11:13 Laboratory Results WBC 11.2 10^3/uL (4.0-10.0) H 12/23/21 11:13 RBC 4.55 10^6/uL (4.1-5.3) 12/23/21 11:13 Hgb 11.4 g/dL (11.5-15.3) L 12/23/21 11:13 Hct 37.2 % (37.0-47.0) 12/23/21 11:13 MCV 81.8 fl (81-99) 12/23/21 11:13 MCH 25.1 pg (28.0-34.0) L 12/23/21 11:13 MCHC 30.6 g/dL (30.0-36.0) 12/23/21 11:13 RDW 14.4 % (12.1-15.1) 12/23/21 11:13 Plt Count 473 10^3/cmm (130-400) H 12/23/21 11:13 MPV 9.2 fL (7.4-10.4) 12/23/21 11:13 Neut % (Auto) 63.9 % 12/23/21 11:13 Lymph % (Auto) 28.8 % 12/23/21 11:13 [place] % (Auto) 4.9 % 12/23/21 11:13 Eos % (Auto) 1.6 % 12/23/21 11:13 Baso % (Auto) 0.4 % 12/23/21 11:13 Neut # (Auto) 7.13 10^3/uL (1.8-7.7) 12/23/21 11:13 Lymph # (Auto) 3.2 10^3/uL (0.8-4.8) 12/23/21 11:13 [place] # (Auto) 0.6 10^3/uL (0.2-0.9) 12/23/21 11:13 Eos # (Auto) 0.2 10^3/uL (0.0-0.8) 12/23/21 11:13 Baso # (Auto) 0.0 10^3/uL (0.0-0.1) 12/23/21 11:13 Nucleated RBC % (auto) 0 % 12/23/21 11:13 Nucleated RBCs # 0.0 /100WBC 12/23/21 11:13 Sodium 137 mmol/L (136-145) 12/23/21 11:13 Potassium 3.9 mmol/L (3.5-5.1) 12/23/21 11:13 Chloride 100 mmol/L (98-107) 12/23/21 11:13 Carbon Dioxide 24 mmol/L (22-29) 12/23/21 11:13 Anion Gap 16.9 (5-19) 12/23/21 11:13 BUN 15 mg/dL (6-20) 12/23/21 11:13 Creatinine 0.7 mg/dL (0.5-0.9) 12/23/21 11:13 GFR Calculation 98.3 mL/min (90-130) 12/23/21 11:13 Glucose 83 mg/dL (65-115) 12/23/21 11:13 Calculated Osmolality 284 mOsm/kg (285-295) L 12/23/21 11:13 Calcium 7.3 mg/dL (8.5-10.5) L 12/23/21 11:13 Total Bilirubin 0.4 mg/dL (0.15-1.2) 12/23/21 11:13 AST 16 U/L (0-32) 12/23/21 11:13 ALT 16 U/L (0-33) 12/23/21 11:13 Alkaline Phosphatase 127 IU/L (35-105) H 12/23/21 11:13 Total Protein 7.8 g/dL (6.6-8.7) 12/23/21 11:13 Albumin 4.2 g/dL (3.5-5.2) 12/23/21 11:13 Globulin 3.6 g/dL (1.3-4.6) 12/23/21 11:13 HCG, Qual Negative (Negative) 12/23/21 11:13 Urine Color Dark yellow (Yellow) 12/23/21 10:30 Urine Appearance Clear (CLEAR) 12/23/21 10:30 Urine pH 5 (5-7) 12/23/21 10:30 Ur Specific [place] 1.025 (1.005-1.030) 12/23/21 10:30 Urine Protein 1+ (Negative) H 12/23/21 10:30 Urine Glucose (UA) Norm (Normal) 12/23/21 10:30 Urine Ketones Negative (Negative) 12/23/21 10:30 Urine Blood Neg (Negative) 12/23/21 10:30 Urine Nitrate Negative (Negative) 12/23/21 10:30 Urine Bilirubin 1+ (Negative) H 12/23/21 10:30 Urine Urobilinogen 1 mg/dL (Negative) H 12/23/21 10:30 Ur Leukocyte Esterase Negative (Negative) 12/23/21 10:30 Urine RBC 0-4 /hpf (0-2) H 12/23/21 10:30 Urine WBC 0-4 /hpf (0-5) H 12/23/21 10:30 Ur Squamous Epith Cells 0-4 /hpf (0-5) H 12/23/21 10:30 Ur Transition Epith Cell None /hpf 12/23/21 10:30 Ur Renal Epithelial Cell N /hpf 12/23/21 10:30 Calcium Oxalate Crystal None /hpf 12/23/21 10:30 Uric Acid Crystals N /hpf 12/23/21 10:30 Triple Phos Crystals None /hpf 12/23/21 10:30 Other Crystals N /hpf 12/23/21 10:30 Amorphous Sediment Trace /hpf 12/23/21 10:30 Urine Bacteria None /hpf (NONE) 12/23/21 10:30 Hyaline Casts None /lpf 12/23/21 10:30 Fine Granular Casts 0-4 /lpf H 12/23/21 10:30 Coarse Granular Casts None /lpf 12/23/21 10:30 RBC Casts None /lpf 12/23/21 10:30 Other Casts N /lpf 12/23/21 10:30 Urine Mucus 1+ /hpf 12/23/21 10:30 Urine Trichomonas None /hpf 12/23/21 10:30 Urine Yeast None /hpf 12/23/21 10:30 Urine Sperm None /hpf 12/23/21 10:30 Ur Oval Fat Bodies None /hpf 12/23/21 10:30 Salicylates < 0.3 mg/dL (3-10) L 12/23/21 11:13 Urine Opiates Screen Negative ng/mL (Negative) 12/23/21 10:30 Acetaminophen < 5.0 ug/mL (10-30) L 12/23/21 11:13 Ur Barbiturates Screen Negative ng/mL (Negative) 12/23/21 10:30 Ur Phencyclidine Scrn Negative ng/mL (Negative) 12/23/21 10:30 Ur Amphetamines Screen Positive ng/mL (Negative) H 12/23/21 10:30 U Benzodiazepines Scrn Negative ng/mL (Negative) 12/23/21 10:30 Urine Cocaine Screen Negative ng/mL (Negative) 12/23/21 10:30 U Marijuana (THC) Screen Negative ng/mL (Negative) 12/23/21 10:30 Ethyl Alcohol < 10 mg/dL (0-10) 12/23/21 11:13 Discharge Plan Discharge Admit Provider: Shawn Brito Clinical Impression: Suicidal ideation Condition: Stable Coding Level of Care Code ED [employer] for [employer]anie Fwd Exam Comprehensive
[2021-12-23 10:58] LABS: Amphetamines Screen Urine Positive (Negative); Barbiturates Screen Urine Negative (Negative); Benzodiazepines Screen Urine Negative (Negative); Cocaine Screen Urine Negative (Negative); Opiate Screen Urine Negative (Negative); PCP Screen Urine Negative (Negative); THC Screen Urine Negative (Negative)
[2021-12-23 11:03] VITALS: BP 137/92; PULSE 88; RESP 20; TEMP 36.7; O2SAT 97
[2021-12-23 11:15] LABS: Protein Urine 1+ (Negative); Specific Gravity, Urine 1.025 (1.005-1.030); Urine Appearance Clear (CLEAR); Urine Color Dark Yellow (Yellow); pH Urine 5 (5-7)
[2021-12-23 11:16] LABS: Add Urine Microscopic? YES; Bilirubin Urine 1+ (Negative); Blood Urine Neg (Negative); Glucose Urine UA Norm (Normal); Ketones Urine Negative (Negative); Leukocyte Esterase Urine Negative (Negative); Nitrate Urine Negative (Negative); Urobilinogen Urine 1 mg/dL (Negative)
[2021-12-23 11:18] LABS: RBC Urine 0-4 /hpf (0-2); Renal Epithelial Cells Urine N /hpf; Squamous Epithelial Cell Urine 0-4 /hpf (0-5); WBC Urine 0-4 /hpf (0-5)
[2021-12-23 11:19] LABS: Add Urine Culture? No; Amorphous Sediment Urine TRACE /hpf; Fine Granular Casts Urine 0-4 /lpf; Mucus Urine 1+ /hpf; Other Casts Urine N /lpf; Other Crystals Urine N /hpf; Other Sediment, Urine N; Uric Acid Crystals Urine N /hpf
[2021-12-23 11:23] LABS: Basophils % 0.4 %; Eosinophils # 0.2 10^3/uL (0.0-0.8); Eosinophils % 1.6 %; Hematocrit 37.2 % (37.0-47.0); Hemoglobin 11.4 g/dL (11.5-15.3); Lymphocytes # 3.2 10^3/uL (0.8-4.8); Lymphocytes % 28.8 %; Mean Corpuscular HGB Conc 30.6 g/dL (30.0-36.0); Mean Corpuscular Hemoglobin 25.1 pg (28.0-34.0); Mean Corpuscular Volume 81.8 fl (81-99); Mean Platelet Volume 9.2 fL (7.4-10.4); Monocytes # 0.6 10^3/uL (0.2-0.9); Monocytes % 4.9 %; Neutrophils # 7.13 10^3/uL (1.8-7.7); Neutrophils % 63.9 %; Nucleated Red Blood Cells % 0 %; Platelet Count 473 10^3/cmm (130-400); Red Blood Count 4.55 10^6/uL (4.1-5.3); Red Cell Distribution Width 14.4 % (12.1-15.1); White Blood Count 11.2 10^3/uL (4.0-10.0)
[2021-12-23 11:45] LABS: Alanine Aminotransferase 16 U/L (0-33); Albumin Level 4.2 g/dL (3.5-5.2); Alkaline Phosphatase 127 IU/L (35-105); Anion Gap 16.9 (5-19); Aspartate Amino Transferase 16 U/L (0-32); Blood Urea Nitrogen 15 mg/dL (6-20); Calcium 7.3 mg/dL (8.5-10.5); Carbon Dioxide 24 mmol/L (22-29); Chloride 100 mmol/L (98-107); Globulin 3.6 g/dL (1.3-4.6); Glomerular Filtration Rate 98.3 mL/min (90-130); Glucose 83 mg/dL (65-115); Osmolality Calculated 284 mOsm/kg (285-295); Potassium 3.9 mmol/L (3.5-5.1); Sodium 137 mmol/L (136-145); Total Bilirubin 0.4 mg/dL (0.15-1.2); Total Protein 7.8 g/dL (6.6-8.7)
[2021-12-23 11:46] LABS: HCG, Serum Qual Negative (Negative)
[2021-12-23 11:51] LABS: Acetaminophen < 5.0 ug/mL (10-30); Alcohol Level < 10 mg/dL (0-10); Salicylate < 0.3 mg/dL (3-10)
--- NOTE | 2021-12-23 13:01 | ECG_ITS ---
[facility] Test Date: 2021-12-23 Pat Name: Dana Tay Department: Room: Gender: Female Director Payer: : 1990 Requested By: Neil Andersen Order Number: [id number] Ingram MD: Quiana Ewing M.D. Measurements Intervals [place] Rate: 82 P: 90 FL: 177 QRS: 80 QRSD: 79 T: 87 QT: 393 QTc: 460 Interpretive Statements SINUS RHYTHM Compared to ECG 03/08/2021 15:44:30 Sinus tachycardia no longer present Electronically Signed On 12-23-2021 23:22:46 CDT by Quiana Ewing M.D. [email or web address]
[2021-12-23 15:32] VITALS: BP 133/72; PULSE 68; RESP 18; O2SAT 94
[2021-12-23 16:08] VITALS: BP 123/71; PULSE 66; RESP 16; TEMP 36.6; O2SAT 96
[2021-12-23 17:17] VITALS: BP 126/51; PULSE 68; RESP 16; TEMP 36.6; O2SAT 99
[2021-12-23 20:25] VITALS: BP 127/84; PULSE 90; RESP 16; TEMP 36.4; O2SAT 100
[2021-12-23] MEDS: nicotine 4 mg lozenge MUCOUS MEM (20:46)
[2021-12-24 06:00] VITALS: BP 121/80; PULSE 89; RESP 18; TEMP 36.8; O2SAT 96
[2021-12-24] MEDS: nicotine 4 mg lozenge MUCOUS MEM ×3 (07:53→17:00)
--- NOTE | 2021-12-24 09:09 | P.NPUHP_ITS ---
Providers/Chief Complaint Admitting Physician: Shawn Brito MD Chief Complaint: SI HPI NPU History of Present Illness Dana Tay is a 31 year old female who presented to emergency department with the following report: Chief Complaint: Psychiatric Symptoms Statedhours problemaint: SI Time Seen by Provider: 12/23/21 09:53 History of Present Illness: Patient is a 31-year-old female comes to the ED with SI. She has a history of methamphetamine abuse, ADHD, depression and anxiety. She is currently not on any medications and does not see any behavioral health specialist. Today she was having a rough day with her and they were fighting. They live out of their car and or finding a parking lot. A person who witnessed them find a bergamot called the ambulance and they went to see her and she told them she was coming to the stress unit. Patient admits to that she has been having some suicidal thoughts. She has been thinking about cutting her wrist. Patient says that her does not want to be with her anymore and she feels like she cannot do anything right. Patient did tell me that she would like to just go to sleep. Associated symptoms: Reports depression and suicidal ideation She was admitted to the neuropsychiatric unit for definitive treatment of those issues. She presents today reporting that her being here is kind of a misunderstanding. She reports she has never been in a psychiatric hospital but she has had outpatient services intermittently, the last time was around 5 years ago or so. She reports she has had medications for ADHD and being ?temperament al? in her life and later endorsed that she has been on medications like Prozac for anxiety and depression. She reports she smokes about half a pack of cigarettes a day, denies alcohol or marijuana with any regularity, and denies any other illicit drug use but does report she has struggled with meth amphetamine. The patient acknowledged current struggles with methamphetamine and there were used and unused needles found in her belongings. She has been to rehab one time but denies any DUIs or possession charges. She reports that growing up she was on ADHD medications from when she was around 5 to 6 years old until she was about 14. She also was on antidepressants at different times during her life. She reports that the reason why she is here is that she got in a fight with her as she was feeling like he ?didn?t want me anymore?. Also there were some financial issues as they were waiting to buy a camper and had loaned money to a family friend as a business venture with a report that it would be doubled. When the person got a judgment and yesterday was supposed to be that day, there was a lot of anticipation as well as amplification of worries about where her and her stood which lead to her feeling sad and reportedly having thoughts to cut herself though she reports she has not really had significant periods of cutting or self-injurious behaviors before. She denies any previous suicide attempts but reports yesterday she was having that annabelle of thinking. So some contradictory statements about being suicidal versus not. She was initially going to be admitted on a voluntary basis but then she reneged on her signature and was suggesting that she was going to leave AMA, denying that she had ever made any suicidal statements. The individuals involved in her care prior were called and an affidavit identifying she did in fact suggest that she was going to kill herself was initiated and she was put on a 96 hour hold yesterday. She presents today reporting that she doesn?t need to be here, that she has talked to her and things are cleared up for the most part. We did discuss the risks, benefits and alternatives of restarting Prozac and she understood and agreed to proceed as is documented in this note. Psychiatric History: As above. Substance Abuse History: As above Family History: She reports mental health issues on her mom?s side of the family, addiction issues on her dad?s side of the family, and suicide attempts on her mom?s side of the family particularly an aunt who she reports comes here regularly. Developmental History: She reports that she was a ?blue baby? but that after they helped her breath she didn?t have any other difficulties. She learned to walk and talk and met her developmental milestones on time, and reports that she did have speech therapy as she had a stutter but denies emotional support, learning support or special education classes. Psychosocial History: She reports that her parents were together when she was born but in 1998. She reports that she has a younger sister who is a product of the same union. Neither of her parents have any other children that she is aware of and she reports that life got real hectic after her parents as they moved a lot. She denies any emotional, physical or sexual abuse but does report there were times where they stayed with her aunt or grandmother and at one point, her mother was moving around a lot and came back and took her, at which point they went together and her sister does not talk to her mother and has resentment towards her because she was left behind. She reports that the only real traumatic events she has had in her life, per her thoughts, was several years ago she was having some drug and alcohol problems, her two sons, who are currently 15 and 10 years old, were taken away from her secondary to having a couple dirty urines after there was some protective services involved. Some 5 years later, she failed another test and lost her daughter. Currently her daughter and youngest son is with her [id number] nearby and her oldest son is with his grandmother in [facility]. She reports that she had some nightmares but denies any faith PTSD symptoms after that. She report the highest grade she attended was the 10th grade and she never got her GED. She endorses being a heterosexual with her longest relationship being 14 years. She has been one time officially and has three children, 15 and 10 year old boys and an 8 year old girl. She has never been in the and denies any church belief system. Her longest work history is 4 years at [employer]. She is currently homeless but her and her are hoping to buy a camper very shortly. Legal History: Denied. Medical History: Obesity. Please see ED note for details. Meds NPU Home Medications Medication Instructions Recorded Confirmed Last Taken Type albuterol sulfate 90 mcg/actuation 1 puff INHALATION Q6H PRN 12/23/21 12/23/21 Unknown History aerosol inhaler naproxen sodium 220 mg tablet 220 mg PO Q12H PRN 12/23/21 12/23/21 Unknown History (Aleve) Allergies Allergy/AdvReac Type Severity Reaction Status Date / Time No Known Allergies Allergy Verified 12/23/21 10:25 PFS NPU PFSH: Medical History Methamphetamine abuse No pertinent family history Social History Smoking and tobacco status: current every day smoker Mental Status Exam MSE Comments: This is an obese white female in hospital scrubs with limited grooming and adequate eye contact. No abnormal movements except for psychomotor retardation. Cooperative with exam in no acute distress. Speech was decrease rate and volume and hoarse from screaming yesterday. Mood described as good, affect slightly subdued. Thought process, organized. Thought content: patient denies any suicidal or homicidal ideation, no delusions reported or noted, and denies any auditory or visual hallucinations. Attention and concentration are intact and memory is reliable but none were formally tested. She is alert and oriented three times. Insight and judgment are limited. Impulse control is limited. Vitals/I&O/Wt Last Vital Signs Temp 98.2 F 12/24/21 06:00 Pulse 89 12/24/21 06:00 Resp 18 12/24/21 06:00 BP 121/80 12/24/21 06:00 Pulse Ox 96 12/24/21 06:00 Weight last 48 hrs Weight 95.254 kg Data NPU : 12/23/21 11:13 12/23/21 11:13 A&P Assessment and plan (1) Suicidal ideation: Status: Acute (2) Major depressive disorder, recurrent: Status: Acute (3) Anxiety: Status: Acute (4) Methamphetamine dependence: Status: Acute Plan This is a 31 year old white female with a history of ADHD, depression and anxiety with active struggles with methamphetamine who presents after endorsing suicidal thinking after a fight with her . Continue current medications except start Prozac 20 mg po qam. Encourage individual, group and milieu therapy Continue q-15 minute check for safety Recommend sober living treatment at the highest level of care to which the patient is willing to commit. Involuntary Hold Information 96 Hour Hold: 96 Hour Involuntary Admission: Yes 96 Hour Hold Ending Date: 12/29/21 96 Hour Hold Ending Time: 17:50 Attestations NPU Medical Necessity Statement*: Inpatient hospitalization is medically necessary and the clinically appropriate intervention at this time. We will monitor medications and make changes as indicated. Patient will be in the hospital for over two midnights. Likely length of stay is one to three days. Coding Level of Care Code Acute Professor Of Biochemistry for Tiffanie Roberson Diagnoses Suicidal ideation R45.851 Major depressive disorder, recurrent F33.9 Anxiety F41.9 Methamphetamine dependence F15.20
[2021-12-24] MEDS: hyDROXYzine 25 mg Capsule 50 MG PO (10:59)
--- NOTE | 2021-12-24 10:59 | PC.NURSE ---
PRN VISTARIL 50 MG GIVEN PO PER PT C/O STATED ANXIETY.
[2021-12-24] MEDS: fluoxetine 20 mg Capsule PO (12:45)
[2021-12-24 14:00] VITALS: BP 101/66; PULSE 96; RESP 18; TEMP 36.7; O2SAT 98
[2021-12-24] MEDS: OLANZapine 5 mg ODT PO (16:59)
[2021-12-24 21:16] VITALS: BP 112/71; PULSE 84; RESP 16; TEMP 36.3; O2SAT 95
[2021-12-25 06:00] VITALS: BP 115/69; PULSE 78; RESP 16; TEMP 36.6; O2SAT 96
[2021-12-25] MEDS: nicotine 4 mg lozenge MUCOUS MEM ×5 (09:02→20:18)
[2021-12-25] MEDS: fluoxetine 20 mg Capsule PO (09:02)
[2021-12-25 14:00] VITALS: BP 113/70; PULSE 102; RESP 20; TEMP 37.1; O2SAT 96
[2021-12-25] MEDS: hyDROXYzine 25 mg Capsule 50 MG PO (17:00)
--- NOTE | 2021-12-25 18:58 | W.PM.NPUPNS ---
Subjective NPU Subjective: Patient presents today seeming to be more full to identify the role that addiction is playing in her presentation. She also reports that she and her significant other will discuss some significant issues that are problematic in her life. She still has some ambivalence about the place that [facility] treatments might play in her recovery but at least endorsed a resolved to discontinue illicit drug use and try to get her life back to a better place. We discussed discharge in the morning. Mental Status Exam MSE Comments: This is an obese white female in hospital scrubs with limited grooming and adequate eye contact. No abnormal movements except for psychomotor retardation. Cooperative with exam in no acute distress. Speech was decrease rate and volume and getting her voice back. Mood described as good, affect slightly subdued. Thought process, organized. Thought content: patient denies any suicidal or homicidal ideation, no delusions reported or noted, and denies any auditory or visual hallucinations. Attention and concentration are intact and memory is reliable but none were formally tested. She is alert and oriented three times. Insight and judgment are limited, but improving. Impulse control is limited. Vitals/I&O/Wt Last Vital Signs Temp 98.4 F 12/25/21 21:40 Pulse 92 12/25/21 21:40 Resp 14 12/25/21 21:40 BP 106/67 12/25/21 21:40 Pulse Ox 96 12/25/21 14:00 Data NPU : 12/23/21 11:13 12/23/21 11:13 A&P Assessment and plan (1) Methamphetamine dependence: Status: Acute (2) Anxiety: Status: Acute (3) Major depressive disorder, recurrent: Status: Acute (4) Suicidal ideation: Status: Acute Plan This is a 31 year old white female with a history of ADHD, depression and anxiety with active struggles with methamphetamine who presents after endorsing suicidal thinking after a fight with her . 1. Continue current medications. Started Prozac 20 mg po qam. 2. Encourage individual, group and milieu therapy 3. Continue q-15 minute check for safety 4. Recommend sober living treatment at the highest level of care to which the patient is willing to commit. Involuntary Hold Information 96 Hour Hold: 96 Hour Involuntary Admission: Yes 96 Hour Hold Ending Date: 12/29/21 96 Hour Hold Ending Time: 17:50 Attestations NPU Medical Necessity Statement*: Inpatient hospitalization is medically necessary and the clinically appropriate intervention at this time. We will monitor medications and make changes as indicated. Tentative plan for discharge tomorrow. Coding Level of Care Code Acute Aviation Safety Officer for Tiffanie Fwd Diagnoses Methamphetamine dependence F15.20 Anxiety F41.9 Major depressive disorder, recurrent F33.9 Suicidal ideation R45.851
[2021-12-25] MEDS: trazodone 50 mg Tablet PO (20:18)
[2021-12-25 21:40] VITALS: BP 106/67; PULSE 92; RESP 14; TEMP 36.9
[2021-12-26 06:00] VITALS: BP 107/68; PULSE 87; RESP 18; TEMP 37.1; O2SAT 95
[2021-12-26] MEDS: nicotine 4 mg lozenge MUCOUS MEM ×2 (07:06→08:43)
--- NOTE | 2021-12-26 07:34 | W.PM.NPUDCS ---
Diagnoses at Discharge Discharge Diagnosis (1) Methamphetamine dependence: Status: Acute (2) Anxiety: Status: Acute (3) Major depressive disorder, recurrent: Status: Acute (4) Suicidal ideation: Status: Resolved Reason for Visit Reason for Visit: SI Brief History: History of Present Illness Dana Tay is a 31 year old female who presented to emergency department with the following report: Chief Complaint: Psychiatric Symptoms Statedhours problemaint: SI Time Seen by Provider: 12/23/21 09:53 History of Present Illness:?? Patient is a 31-year-old female comes to the ED with SI.? She has a history of methamphetamine abuse, ADHD, depression and anxiety.? She is currently not on any medications and does not? see any behavioral health specialist.? Today she was having a rough day with her and they were fighting.? They live out of their car and or finding a parking lot.? A person who witnessed them find a bergamot called the ambulance and they went to see her and she told them she was coming to the stress unit.? Patient admits to that she has been having some suicidal thoughts.? She has been thinking about cutting her wrist.? Patient says that her does not want to be with her anymore and she feels like she cannot do anything right. Patient did tell me that she would like to just go to sleep. Associated symptoms: Reports depression and suicidal ideation She was admitted to the neuropsychiatric unit for definitive treatment of those issues. She presents today reporting that her being here is kind of a misunderstanding. She reports she has never been in a psychiatric hospital but she has had outpatient services intermittently, the last time was around 5 years ago or so. She reports she has had medications for ADHD and being ?temperamental? in her life and later endorsed that she has been on medications like Prozac for anxiety and depression. She reports she smokes about half a pack of cigarettes a day, denies alcohol or marijuana with any regularity, and denies any other illicit drug use but does report she has struggled with methamphetamine. The patient acknowledged current struggles with methamphetamine and there were used and unused needles found in her belongings. She has been to rehab one time but denies any DUIs or possession charges.? She reports that growing up she was on ADHD medications from when she was around 5 to 6 years old until she was about 14. She also was on antidepressants at different times during her life. She reports that the reason why she is here is that she got in a fight with her as she was feeling like he ?didn?t want me anymore?. Also there were some financial issues as they were waiting to buy a camper and had loaned money to a family friend as a business venture with a report that it would be doubled. When the person got a judgment and yesterday was supposed to be that day, there was a lot of anticipation as well as amplification of worries about where her and her stood which lead to her feeling sad and reportedly having thoughts to cut herself though she reports she has not really had significant periods of cutting or self-injurious behaviors before. She denies any previous suicide attempts but reports yesterday she was having that annabelle of thinking. So some contradictory statements about being suicidal versus not. She was initially going to be admitted on a voluntary basis but then she reneged on her signature and was suggesting that she was going to leave AMA, denying that she had ever made any suicidal statements. The individuals involved in her care prior were called and an affidavit identifying she did in fact suggest that she was going to kill herself was initiated and she was put on a 96 hour hold yesterday. She presents today reporting that she doesn?t need to be here, that she has talked to her and things are cleared up for the most part. We did discuss the risks, benefits and alternatives of restarting Prozac and she understood and agreed to proceed as is documented in this note. Psychiatric History: As above. Substance Abuse History: As above Family History: She reports mental health issues on her mom?s side of the family, addiction issues on her dad?s side of the family, and suicide attempts on her mom?s side of the family particularly an aunt who she reports comes here regularly. Developmental History: She reports that she was a ?blue baby? but that after they helped her breath she didn?t have any other difficulties. She learned to walk and talk and met her developmental milestones on time, and reports that she did have speech therapy as she had a stutter but denies emotional support, learning support or special education classes. Psychosocial History: She reports that her parents were together when she was born but in 1998. She reports that she has a younger sister who is a product of the same union. Neither of her parents have any other children that she is aware of and she reports that life got real hectic after her parents as they moved a lot. She denies any emotional, physical or sexual abuse but does report there were times where they stayed with her aunt or grandmother and at one point, her mother was moving around a lot and came back and took her, at which point they went together and her sister does not talk to her mother and has resentment towards her because she was left behind. She reports that the only real traumatic events she has had in her life, per her thoughts, was several years ago she was having some drug and alcohol problems, her two sons, who are currently 15 and 10 years old, were taken away from her secondary to having a couple dirty urines after there was some protective services involved. Some 5 years later, she failed another test and lost her daughter. Currently her daughter and youngest son is with her [id number] nearby and her oldest son is with his grandmother in [facility]. She reports that she had some nightmares but denies any faith PTSD symptoms after that. She report the highest grade she attended was the 10th grade and she never got her GED. She endorses being a heterosexual with her longest relationship being 14 years. She has been one time officially and has three children, 15 and 10 year old boys and an 8 year old girl. She has never been in the and denies any presybeterian belief system. Her longest work history is 4 years at [employer]. She is currently homeless but her and her are hoping to buy a camper very shortly. Legal History: Denied. Medical History: Obesity. Please see ED note for details. Hospital Course Hospital Course She slowly acclimated to the individual, group and milieu therapies provided. We started Prozac for her depression and anxiety and trazodone to help with sleep. She had significant improvement. She became more able to have an honest discussion about her recovery and her current choices that are continuing quite problematic behavior that has been going on for years now. She was able to contract for safety outside the hospital prior to discharge. During the hospitalization, patient had routine laboratory studies which were within normal limits except for few outliers. Additionally there was a general medical evaluation which was also within normal limits and revealed no new acute processes. Discharge Summary: At the time of discharge, she denied psychosis or lethality. Mood and anxiety were well managed. Patient endorsed a plan to avoid all drugs of abuse and follow-up with the aftercare recommendations of the treatment team. Patient was evaluated and deemed to be absent credible lethality, and had achieved the maximum benefit from an inpatient hospitalization, so was discharged. Involuntary Hold Information 96 Hour Hold: 96 Hour Involuntary Admission: Yes 96 Hour Hold Ending Date: 12/29/21 96 Hour Hold Ending Time: 17:50 Mental Status Exam MSE Comments: This is an obese white female in hospital scrubs with adequate grooming and adequate eye contact. Poor dentition no abnormal movements except for mild psychomotor retardation. Cooperative with exam in no acute distress. Speech was more normal rate and volume. Mood described as good, affect brighter. Thought process, organized. Thought content: patient denies any suicidal or homicidal ideation, no delusions reported or noted, and denies any auditory or visual hallucinations. Attention and concentration are intact and memory is reliable but none were formally tested. She is alert and oriented three times. Insight and judgment are improving.? Impulse control is limited. Discharge Data Studies Completed and Pending: Laboratory Results WBC 11.2 10^3/uL (4.0 -10.0) H 12/23/21 11:13 RBC 4.55 10^6/uL (4.1 -5.3) 12/23/21 11:13 Hgb 11.4 g/dL (11.5-1 5.3) L 12/23/21 11:13 Hct 37.2 % (37.0-47.0 ) 12/23/21 11:13 MCV 81.8 fl (81-99) 12/23/21 11:13 MCH 25.1 pg (28.0-34. 0) L 12/23/21 11:13 MCHC 30.6 g/dL (30.0-3 6.0) 12/23/21 11:13 RDW 14.4 % (12.1-15.1 ) 12/23/21 11:13 Plt Count 473 10^3/cmm (130 -400) H 12/23/21 11:13 MPV 9.2 fL (7.4-10.4) 12/23/21 11:13 Neut % (Auto) 63.9 % 12/23/21 11:13 Lymph % (Auto) 28.8 % 12/23/21 11:13 [place] % (Auto) 4.9 % 12/23/21 11:13 Eos % (Auto) 1.6 % 12/23/21 11:13 Baso % (Auto) 0.4 % 12/23/21 11:13 Neut # (Auto) 7.13 10^3/uL (1.8 -7.7) 12/23/21 11:13 Lymph # (Auto) 3.2 10^3/uL (0.8- 4.8) 12/23/21 11:13 [place] # (Auto) 0.6 10^3/uL (0.2- 0.9) 12/23/21 11:13 Eos # (Auto) 0.2 10^3/uL (0.0- 0.8) 12/23/21 11:13 Baso # (Auto) 0.0 10^3/uL (0.0- 0.1) 12/23/21 11:13 Nucleated RBC % (a uto) 0 % 12/23/21 11:13 Nucleated RBCs # 0.0 /100WBC 12/23/21 11:13 Sodium 137 mmol/L (136-1 45) 12/23/21 11:13 Potassium 3.9 mmol/L (3.5-5 .1) 12/23/21 11:13 Chloride 100 mmol/L (98-10 7) 12/23/21 11:13 Carbon Dioxide 24 mmol/L (22-29) 12/23/21 11:13 Anion Gap 16.9 (5-19) 12/23/21 11:13 BUN 15 mg/dL (6-20) 12/23/21 11:13 Creatinine 0.7 mg/dL (0.5-0. 9) 12/23/21 11:13 GFR Calculation 98.3 mL/min (90-1 30) 12/23/21 11:13 Glucose 83 mg/dL (65-115) 12/23/21 11:13 Calculated Osmolal ity 284 mOsm/kg (285- 295) L 12/23/21 11:13 Calcium 7.3 mg/dL (8.5-10 .5) L 12/23/21 11:13 Total Bilirubin 0.4 mg/dL (0.15-1 .2) 12/23/21 11:13 AST 16 U/L (0-32) 12/23/21 11:13 ALT 16 U/L (0-33) 12/23/21 11:13 Alkaline Phosphata se 127 IU/L (35-105) H 12/23/21 11:13 Total Protein 7.8 g/dL (6.6-8.7 ) 12/23/21 11:13 Albumin 4.2 g/dL (3.5-5.2 ) 12/23/21 11:13 Globulin 3.6 g/dL (1.3-4.6 ) 12/23/21 11:13 HCG, Qual Negative (Negati ve) 12/23/21 11:13 Urine Color Dark yellow (Yel low) 12/23/21 10:30 Urine Appearance Clear (CLEAR) 12/23/21 10:30 Urine pH 5 (5-7) 12/23/21 10:30 Ur Specific Gravit y 1.025 (1.005-1.0 30) 12/23/21 10:30 Urine Protein 1+ (Negative) H 12/23/21 10:30 Urine Glucose (UA) Norm (Normal) 12/23/21 10:30 Urine Ketones Negative (Negati ve) 12/23/21 10:30 Urine Blood Neg (Negative) 12/23/21 10:30 Urine Nitrate Negative (Negati ve) 12/23/21 10:30 Urine Bilirubin 1+ (Negative) H 12/23/21 10:30 Urine Urobilinogen 1 mg/dL (Negative ) H 12/23/21 10:30 Ur Leukocyte Sara ase Negative (Negati ve) 12/23/21 10:30 Urine RBC 0-4 /hpf (0-2) H 12/23/21 10:30 Urine WBC 0-4 /hpf (0-5) H 12/23/21 10:30 Ur Squamous Epith Cells 0-4 /hpf (0-5) H 12/23/21 10:30 Ur Transition Epit h Cell None /hpf 12/23/21 10:30 Ur Renal Epithelia l Cell N /hpf 12/23/21 10:30 Calcium Oxalate Cr ystal None /hpf 12/23/21 10:30 Uric Acid Crystals N /hpf 12/23/21 10:30 Triple Phos Luz ls None /hpf 12/23/21 10:30 Other Crystals N /hpf 12/23/21 10:30 Amorphous Sediment Trace /hpf 12/23/21 10:30 Urine Bacteria None /hpf (NONE) 12/23/21 10:30 Hyaline Casts None /lpf 12/23/21 10:30 Fine Granular Cast s 0-4 /lpf H 12/23/21 10:30 Coarse Granular Ca sts None /lpf 12/23/21 10:30 RBC Casts None /lpf 12/23/21 10:30 Other Casts N /lpf 12/23/21 10:30 Urine Mucus 1+ /hpf 12/23/21 10:30 Urine Trichomonas None /hpf 12/23/21 10:30 Urine Yeast None /hpf 12/23/21 10:30 Urine Sperm None /hpf 12/23/21 10:30 Ur Oval Fat Bodies None /hpf 12/23/21 10:30 Salicylates < 0.3 mg/dL (3-10 ) L 12/23/21 11:13 Urine Opiates Scre en Negative ng/mL (N egative) 12/23/21 10:30 Acetaminophen < 5.0 ug/mL (10-3 0) L 12/23/21 11:13 Ur Barbiturates Sc reen Negative ng/mL (N egative) 12/23/21 10:30 Ur Phencyclidine S crn Negative ng/mL (N egative) 12/23/21 10:30 Ur Amphetamines Sc reen Positive ng/mL (N egative) H 12/23/21 10:30 U Benzodiazepines Scrn Negative ng/mL (N egative) 12/23/21 10:30 Urine Cocaine Scre en Negative ng/mL (N egative) 12/23/21 10:30 U Marijuana (THC) Screen Negative ng/mL (N egative) 12/23/21 10:30 Ethyl Alcohol < 10 mg/dL (0-10) 12/23/21 11:13 Vitals: Last Vital Signs Temp 98.8 F 12/26/21 06:00 Pulse 87 12/26/21 06:00 Resp 18 12/26/21 06:00 BP 107/68 12/26/21 06:00 Pulse Ox 95 12/26/21 06:00 Discharge Plan Discharge Patient Disposition: Home Condition: Stable Prescriptions: New trazodone 50 mg Tablet 50 mg PO BEDTIME PRN (Reason: Sleep) 30 Days Qty: 30 1RF fluoxetine 20 mg Capsule 20 mg PO DAILY 30 Days Qty: 30 1RF Continued Aleve 220 mg Tablet 220 mg PO Q12H PRN (Reason: Pain) 0RF albuterol sulfate 90 mcg/actuation HFA aerosol inhaler 1 puff inhalation Q6H PRN (Reason: shortness of breath or wheezing) 0RF Discharge Orders: Discharge Order (Routine); Ordered 12/26/21 Ordered By: Shawn Brito Referrals: [facility] [place] [Outside] - 01/28/22 11:45 am (Initial Appointment) Jerad South DO [Physician] - 12/30/21 9:30 am () Discharge Diet: Regular Discharge Activity: Resume usual activity Patient Instructions: Opioid Safety Discharge Attestations NPU Time Spent in Discharge Care*: less than 30 min Specific Discharge Activities: Specific discharge activities: educating patient, discussing with patient case coordinator/social workers/dc planners, documenting/other paperwork and evaluating patient/reviewing data Coding Level of Care Code Acute Chg FW DC note Diagnoses Methamphetamine dependence F15.20 Anxiety F41.9 Major depressive disorder, recurrent F33.9 Suicidal ideation R45.851
[2021-12-26 08:21] VITALS: BP 107/68; PULSE 87; RESP 18; TEMP 37.1; O2SAT 95
[2021-12-26] MEDS: fluoxetine 20 mg Capsule PO (08:43)
== END 2021-12-26 09:00 | disposition home or self-care (01) | DRG 885 ==
LOC: ER 14:54 → NP 15:21
PROVIDERS: Physician Assistant; Admitting Provider Psychiatry & Neurology Psychiatry; Emergency Provider Family Medicine; Visit Provider Psychiatry & Neurology Psychiatry
DX: F33.9 Major depressive disorder, recurrent, unspecified (principal); F15.20 Other stimulant dependence, uncomplicated; R45.851 Suicidal ideations; F41.9 Anxiety disorder, unspecified
CPT/HCPCS: 36415; 80053; 80306; 80307; 81001; 84703; 85025; 93005; 97165; 99285

== ENCOUNTER 2022-03-08 13:54 | Emergency (ER) | payer BC, MEDICAID, SELFPAY ==
[2022-03-08 14:00] VITALS: BP 121/84; PULSE 89; RESP 16; TEMP 36.4; O2SAT 94
[2022-03-08 15:24] LABS: HCG Qualitative Urine. Negative (Negative)
--- NOTE | 2022-03-08 15:28 | W.ED.BACK ---
HPI - Back Pain/Injury General: Chief Complaint: Back Pain/Injury Stated Complaint: BACK PAIN Time Seen by Provider: 03/08/22 14:08 Source: patient Mode of arrival: ambulatory Limitations: no limitations History of Present Illness: 31-year-old female who states that she is currently homeless and has been drinking much water over the last 2 days and has been out in the heat. She has had some lower back pain denies any nausea vomiting. States pain is been a cramping pain but is currently pain-free since being out of the heat. She has been urinating she states. Denies any vomiting or diarrhea. Associated symptoms: Deny abdominal pain, chills, dysuria, fever(s), nausea or vomiting Review of Systems Const: Denies: fever(s), chills, body aches or change in appetite Eyes: Denies: blurry vision or eye discomfort ENMT: Denies: throat pain or dental pain Card: Denies: chest pain Resp: Denies: dyspnea GI: Denies: abdominal pain, nausea, vomiting or diarrhea : Denies: dysuria Musc: Reports: back pain Skin/Breast: Denies: rash Neuro: Denies: headache(s) Psych: Denies: depression Toribio/Lymph: Denies: easy bruising All/Imm: Denies: urticaria PFSH ED PFSH: Medical History Methamphetamine abuse No pertinent family history Social History Smoking and tobacco status: never smoked Alcohol intake: never Female Reproductive History: Date of last menstrual period: 10/14/21 Physical Exam Const: COMMON NORMALS: no acute distress, patient oriented x3 and healthy appearing HENMT: COMMON NORMALS: normocephalic and atraumatic HEAD & SCALP: normocephalic and atraumatic Eye: COMMON NORMALS: Equal, round and reactive pupils present and EOMs intact bilaterally PUPIL: Yes Equal, round and reactive pupils present Neck/C-Spine: COMMON NORMALS: full ROM and supple Chest: COMMONS NORMALS: normal inspection of the chest and normal palpation of entire chest wall Resp: COMMON NORMALS: normal respiratory effort, No retractions, No use of accessory muscles and clear to auscultation bilaterally AUSCULTATION: clear to auscultation bilaterally Cardio: COMMON NORMALS: regular rate, regular rhythm and No murmurs present (Cardio) RATE: regular rate RHYTHM: regular rhythm GI: COMMON NORMALS: Normal to inspection, nondistended, normoactive bowel sounds present, Soft to palpation, non-tender and no masses PALPATION: Yes Soft to palpation Extremity: COMMON NORMALS: normal to inspection and full ROM Neuro: COMMON NORMALS: patient oriented x3, moves all extremities and no focal motor deficits Psych: COMMON NORMALS: mental status grossly normal, Normal thought process present and cooperative THOUGHT PROCESS: Normal thought process present Skin: COMMON NORMALS: no rashes or lesions noted and no wounds GENERAL SKIN EXAM: no rashes or lesions noted Course Vital Signs: Vital signs: Vital Signs Temperature 97.6 F 03/08/22 14:00 Pulse Rate 89 03/08/22 14:00 Respiratory Rate 16 03/08/22 14:00 Blood Pressure 121/84 03/08/22 14:00 Pulse Oximetry 94 03/08/22 14:00 MDM - Back Pain/Injury Medical Decision Making Patient presents here with some lower back pain and some urinary complaints she does have a urinary tract infection her specific gravity is normal she has no signs of severe dehydration or heat exhaustion she is stable for discharge we will place her on antibiotics she is to follow-up with PCP and return if worsening she understands agrees to plan. Labs Laboratory Results HCG, Qual Negative (Negative) 03/08/22 15:15 Urine Color Yellow (Yellow) 03/08/22 15:15 Urine Appearance Hazy (CLEAR) A 03/08/22 15:15 Urine pH 6.5 (5-7) 03/08/22 15:15 Ur Specific [place] 1.005 (1.005-1.030) 03/08/22 15:15 Urine Protein 1+ (Negative) H 03/08/22 15:15 Urine Glucose (UA) Norm (Normal) 03/08/22 15:15 Urine Ketones Negative (Negative) 03/08/22 15:15 Urine Blood 3+ (Negative) H 03/08/22 15:15 Urine Nitrate Positive (Negative) H 03/08/22 15:15 Urine Bilirubin Neg (Negative) 03/08/22 15:15 Urine Urobilinogen Norm mg/dL (Negative) 03/08/22 15:15 Ur Leukocyte Esterase Negative (Negative) 03/08/22 15:15 Urine RBC 10-15 /hpf (0-2) H 03/08/22 15:15 Urine WBC 10-15 /hpf (0-5) H 03/08/22 15:15 Ur Squamous Epith Cells 15-25 /hpf (0-5) H 03/08/22 15:15 Ur Transition Epith Cell 5-10 /hpf 03/08/22 15:15 Amorphous Sediment Not Reportable 03/08/22 15:15 Urine Bacteria 2+ /hpf (NONE) H 03/08/22 15:15 Urine Mucus 1+ /hpf 03/08/22 15:15 Discharge Plan Discharge Patient Disposition: Home Clinical Impression: Acute cystitis Qualifiers: Hematuria presence: without hematuria Qualified Code(s): N30.00 - Acute cystitis without hematuria Condition: Stable Prescriptions: No Action albuterol sulfate 90 mcg/actuation HFA aerosol inhaler 1 puff inhalation Q6H PRN (Reason: shortness of breath or wheezing) Qty: 8.5 2RF Aleve 220 mg Tablet 220 mg PO Q12H PRN (Reason: Pain) 0RF trazodone 50 mg Tablet 50 mg PO BEDTIME PRN (Reason: Sleep) 30 Days Qty: 30 1RF fluoxetine 20 mg Capsule 20 mg PO DAILY 30 Days Qty: 30 1RF Discharge Orders: Discharge ED (Routine); Ordered 03/08/22 Ordered By: Nata Han Referrals: Jerad South DO [Primary Care Provider] - 1-3 days Discharge Diet: Advance as tolerated Discharge Activity: Resume usual activity Patient Instructions: Urinary Tract Infection in Women (ED) Coding Level of Care Code ED Wad Compressor Operator Adjuster for Chg Fwd Exam Comprehensive
[2022-03-08 15:32] LABS: Bilirubin Urine Neg (Negative); Blood Urine 3+ (Negative); Glucose Urine UA Norm (Normal); Ketones Urine Negative (Negative); Leukocyte Esterase Urine Negative (Negative); Nitrate Urine Positive (Negative); Protein Urine 1+ (Negative); Specific Gravity, Urine 1.005 (1.005-1.030); Urine Appearance Hazy (CLEAR); Urine Color Yellow (Yellow); Urobilinogen Urine Norm (Negative); pH Urine 6.5 (5-7)
[2022-03-08 15:33] LABS: Add Urine Microscopic? YES
[2022-03-08 15:34] LABS: Bacteria Urine 2+ /hpf; Mucus Urine 1+ /hpf; Squamous Epithelial Cell Urine 15-25 /hpf (0-5)
[2022-03-08 15:35] LABS: Add Urine Culture? No
--- NOTE | 2022-03-08 16:04 | PC.NURSE ---
When I went in to give IV antibiotics I found that pt had pulled out her IV. Pt states she pulled it out herself. I went to place order for IM shot and witnessed that pt had walked out of the hospital and was walking across the parking lot. Pt had paperwork in her hand but no antibiotic was given here
== END 2022-03-08 16:07 | disposition home or self-care (01) ==
PROVIDERS: Emergency Provider Emergency Medicine; PCP Family Medicine
DX: N30.00 Acute cystitis without hematuria (principal)
CPT/HCPCS: 81001; 81025; 99283

== ENCOUNTER 2025-03-04 13:26 | Emergency (ER) | payer SELFPAY ==
[2025-03-04 13:33] VITALS: BP 121/82; PULSE 100; RESP 18; TEMP 36.4; O2SAT 99; BMI 34.7
--- NOTE | 2025-03-04 14:42 | XRR_ITS ---
PROCEDURE INFORMATION: Exam: XR Left Foot Exam date and time: 03/04/2025 2:51 PM Age: 34 years old Clinical indication: Pain; Foot; Left; Additional info: Bilateral plantar blisters; Bilateral foot pain; No known injury TECHNIQUE: Imaging protocol: Radiologic exam of the left foot. Views: 3 or more views. COMPARISON: No relevant prior studies available. FINDINGS: Bones/joints: No acute fracture or dislocation. Small posterior calcaneal enthesophyte. Joint spaces are preserved. Soft tissues: Mild soft tissue swelling in the forefoot. XR/XR foot LT min 3V* [id number] IMPRESSION: No acute osseous findings.
--- NOTE | 2025-03-04 14:42 | XRR_ITS ---
PROCEDURE INFORMATION: Exam: XR Right Foot Exam date and time: 03/04/2025 2:53 PM Age: 34 years old Clinical indication: Bilateral plantar blisters; Bilateral foot pain; No known injury TECHNIQUE: Imaging protocol: Radiologic exam of the right foot. Views: 3 or more views. COMPARISON: No relevant prior studies available. FINDINGS: Bones/joints: No acute fracture or dislocation. Mild hallux valgus deformity. Joint spaces are preserved. Small posterior calcaneal enthesophyte. Soft tissues: Normal. XR/XR foot RT min 3V* [id number] IMPRESSION: No acute osseous findings.
--- NOTE | 2025-03-04 14:46 | ED_ITS ---
HPI - Extremity Problem 2 General: Chief complaint: Extremity Problem,Nontraumatic Stated complaint: suresh foot pain Time Seen by Provider: 03/04/25 14:42 History of Present Illness: 34-year-old female presents emergency ro om complaining of bilateral foot pain such as some blisters on her feet when walking on very thin she is on hot asphalt for an extended period of time but no other injuries no falls no crush injuries. She denies any fever sweats or chills. Associated symptoms: Deny chest pain, fever(s) or rash Related Data Home Medications ?Medication ?Instructions ?Recorded ?Confirmed naproxen sodium 220 mg tablet 220 mg PO Q12H PRN Pain 12/23/21 12/30/21 (Aleve) Previous Rx's ?Medication ?Instructions ?Recorded fluoxetine 20 mg capsule 20 mg PO DAILY 30 days #30 c aps 12/26/21 trazodone 50 mg tablet 50 mg PO BEDTIME PRN Sleep 3 0 days 12/26/21 #30 tabs albuterol sulfate 90 mcg/actuation 1 puff inhalation Q 6H PRN 12/30/21 aerosol inhaler shortness of breath or wheez ing #8.5 grams Allergies Allergy/AdvReac Type Severity Reaction Status Date / Time No Known Allergies Allergy Verified 03/04/25 13:36 Review of Systems 2 Const: Denies: fever(s) or chills Card: Denies: chest pain Resp: Denies: dyspnea GI: Denies: abdominal pain : Denies: dysuria, urinary frequency or urinary urgency Musc: Denies: neck pain or back pain Skin/Breast: Denies: rash PFSH ED 2 PFSH: Medical History Psychiatric care Methamphetamine abuse No pertinent family history Social History Smoking and tobacco/nicotine status: never used tobacco/nicotine Alcohol intake: never Substance/Drug Use: current Substance/Drug use frequency: few times a week Other substance/drug use details: 20 years with 5 year sober break in the middle, currently using again Physical Exam 2 Const: GENERAL APPEARANCE: cooperative ORIENTATION/CONSCIOUSNESS: Yes awake, Yes oriented to person, Yes oriented to place and Yes oriented to time HENMT: COMMON NORMALS: normocephalic, atraumatic and hearing grossly normal bilaterally HEAD & SCALP: normocephalic and atraumatic Resp: COMMON NORMALS: normal respiratory effort, No retractions, No use of accessory muscles and clear to auscultation bilaterally AUSCULTATION: clear to auscultation bilaterally Cardio: COMMON NORMALS: regular rate, regular rhythm and No murmurs present (Cardio) RATE: regular rate RHYTHM: regular rhythm GI: COMMON NORMALS: Soft to palpation and No hepatosplenomegaly present A USCULTATION: Yes normoactive bowel sounds PALPATION: Yes Soft to palpation, No Tenderness to palpation present (GI), No Guarding due to palpation present (GI) and Yes No hepatosplenomegaly present Extremity: COMMON NORMALS: normal to inspection, capillary refill normal, no clubbing, cyanosis or edema, no calf tenderness and no pedal edema Neuro: SENSORIUM/ORIENTATION: Yes oriented to person, Yes oriented to place and Yes oriented to time Skin: COMMON NORMALS: no rashes or lesions noted GENERAL SKIN EXAM: no rashes or lesions noted Course 2 Vital Signs: Vital signs: Vital Signs Temperature 97.6 F 03/04/25 13:33 Pulse Rate 80 03/04/25 16:15 Respiratory Rate 18 03/04/25 13:33 Blood Pressure 91/54 03/04/25 16:15 Pulse Oximetry 97 03/04/25 16:15 Oxygen Delivery Me thod Room Air 03/04/25 13:33 MDM - Extremity (Nontraumatic) Medical Decision Making No acute findings at this time x-ray of your feet there is no significant abnormality. She does have some little bit of redness he has multiple areas of small cuts and skin breaks nothing looks purulent there is no lymphatic streaking. Put her on a short course of oral antibiotics and follow-up with primary care doctor Lab Data 03/04/25 15:41 Radiology Impressions Foot X-Ray 03/04/25 14:42 IMPRESSION: No acute osseous findings. Laboratory Results WBC 10.16 10^3/uL (3.29-11.43) 03/04/25 15:41 RBC 5.08 10^6/uL (3.85-5.65) 03/04/25 15:41 Hgb 13.20 g/dL (11.27-16.99) 03/04/25 15:41 Hct 43.0 % (36-47) 03/04/25 15:41 MCV 84.6 fl (85-98) L 03/04/25 15:41 MCH 26.0 pg (27-33) L 03/04/25 15:41 MCHC 30.7 g/dL (30-55) 03/04/25 15:41 RDW 15.0 % (12.1-15.1) 03/04/25 15:41 Plt Count 395 10^3/cmm (157-399) 03/04/25 15:41 MPV 9.3 fL (7.4-10.4) 03/04/25 15:41 Neut % (Auto) 63.2 % 03/04/25 15:41 Lymph % (Auto) 25.8 % 03/04/25 15:41 Deuel % (Auto) 7.8 % 03/04/25 15:41 Eos % (Auto) 2.4 % 03/04/25 15:41 Baso % (Auto) 0.5 % 03/04/25 15:41 Neut # (Auto) 6.43 10^3/uL (1.8-7.7) 03/04/25 15:41 Lymph # (Auto) 2.6 10^3/uL (0.8-4.8) 03/04/25 15:41 Deuel # (Auto) 0.8 10^3/uL (0.2-0.9) 03/04/25 15:41 Eos # (Auto) 0.2 10^3/uL (0.0-0.8) 03/04/25 15:41 Baso # (Auto) 0.1 10^3/uL (0.0-0.1) 03/04/25 15:41 Nucleated RBC % (auto) 0 % 03/04/25 15:41 Nucleated RBCs # 0.0 /100WBC 03/04/25 15:41 All radiology interpretation(s) finalized by discharge Discharge Plan Discharge Patient Disposition: Home Clinical Impression: Cellulitis, Bilateral foot pain Condition: Stable Prescriptions: No Action albuterol sulfate 90 mcg/actuation HFA aerosol inhaler 1 puff inhalation Q6H PRN (Reason: shortness of breath or wheezing) Qty: 8.5 2RF Aleve 220 mg Tablet 220 mg PO Q12H PRN (Reason: Pain) trazodone 50 mg Tablet 50 mg PO BEDTIME PRN (Reason: Sleep) 30 Days Qty: 30 1RF fluoxetine 20 mg Capsule 20 mg PO DAILY 30 Days Qty: 30 1RF Discharge Orders: Discharge ED (Routine); Ordered 03/04/25 Ordered By: Jan Treviño Discharge Diet: Usual diet Discharge Activity: Increase activity as tolerated Patient Instructions: Opioid Safety, Pain Management, Patient Portal & Amy Instructions Activity Restrictions/Additional Instructions: Thank you for choosing [facility] for your healthcare needs today. It is very important that you follow up as instructed or that you return to the Emergency Department should you have concerns or if your condition changes or worsens in any way. You are seen in the emergency room with complaints of pain in discomfort in your feet. There was a little bit of redness in the lower extremities. Also some blisters on the soles of the feet. Your white count was normal. Will start you on Bactrim DS 1 p.o. 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
[2025-03-04] MEDS: tetanus-dipt-pertussis 0.5 mL SDV IM (15:10)
[2025-03-04 15:47] LABS: Hematocrit 43.0 % (36-47); Hemoglobin 13.20 g/dL (11.27-16.99); Mean Corpuscular HGB Conc 30.7 g/dL (30-55); Mean Corpuscular Hemoglobin 26.0 pg (27-33); Mean Corpuscular Volume 84.6 fl (85-98); Nucleated Red Blood Cells % 0 %; Platelet Count 395 10^3/cmm (157-399); Red Blood Count 5.08 10^6/uL (3.85-5.65); White Blood Count 10.16 10^3/uL (3.29-11.43)
[2025-03-04 16:15] VITALS: BP 91/54; PULSE 80; O2SAT 97
== END 2025-03-04 16:15 | disposition home or self-care (01) ==
PROVIDERS: Emergency Provider Family Medicine
DX: L03.116 Cellulitis of left lower limb (principal); L03.115 Cellulitis of right lower limb
CPT/HCPCS: 73630; 85025; 90471; 90715; 99283